=== PATIENT | female | born 1940 | race Caucasian/White ===

== ENCOUNTER 2017-07-12 17:17 | Inpatient (IN) | payer MEDICARE, OTHER ==
[2017-07-12 18:16] VITALS: BP 102/54
[2017-07-12] MEDS ORDERED: Magnesium Hydroxide (MOM) 30 mL UDC PO PRN (20:00)
[2017-07-12] MEDS ORDERED: Maalox 30 mL Cup PO PRN (20:00)
[2017-07-13] MEDS: Levothyroxine 0.1 Mg Tab PO SCH (06:43)
[2017-07-13] MEDS: Pantoprazole 40 mg EC Tab PO SCH (06:43)
[2017-07-13] MEDS ORDERED: Levothyroxine 0.025 Mg Tab PO SCH (07:30)
[2017-07-13 08:47] LABS: % EOSINOPHILS 1.9 % (0.0-5.0); % LYMPHOCYTES 26.1 % (20.0-50.0); % MONOCYTES 7.2 % (2.0-10.0); % NEUTROPHILS 64.8 % (40.0-80.0); EOSINOPHILE ABSOLUTE 0.1 Th/cmm (0.1-0.4); HEMATOCRIT 33.3 % (41.0-60); HEMOGLOBIN 11.1 gm/dL (12-16); MEAN CELL VOLUME 103.6 fl (81-100); MEAN CORPUSCULAR HEMOGLOBIN 34.6 pg (27.0-31.0); MEAN CORPUSCULAR HGB CONC 33.4 pg (28.0-36.0); MEAN PLATELET VOLUME 10.4 fl; MONOCYTE ABSOLUTE 0.3 Th/cmm (0.3-1.0); NEUTROPHILE ABSOLUTE 2.4 Th/cmm (1.8-8.0); PLATELET COUNT 76 Th/cmm (150-400); RED BLOOD COUNT 3.21 Mil/cmm (3.80-5.20); RED CELL DISTRIBUTION WIDTH 14.6 % (11.5-20.0)
[2017-07-13 08:58] LABS: WHITE BLOOD COUNT 3.8 Th/cmm (4.8-10.8)
[2017-07-13 09:05] LABS: ALB/GLOB RATIO 1.2 (1.0-1.8); ALBUMIN 3.1 gm/dL (3.7-5.3); ALKALINE PHOSPHATASE 71 U/L (34-104); ANION GAP 11.4 (7.0-16.0); BILIRUBIN,TOTAL 0.5 mg/dL (0.3-1.0); BUN - UREA NITROGEN 14 mg/dL (7-25); CALCIUM SERUM 8.7 mg/dL (8.6-10.3); CARBON DIOXIDE 23.6 mEq/L (21.0-31.0); CHLORIDE 109 mEq/L (98-107); CREATININE - SERUM 0.7 mg/dL (0.6-1.2); GLUCOSE 125 mg/dL (70-105); SGOT 20 U/L (13-39); SGPT/ALT 14 U/L (7-52); SODIUM SERUM 140 mEq/L (136-145); TOTAL PROTEIN,SERUM 5.7 gm/dL (6.0-8.3)
[2017-07-13 09:06] LABS: VALPROIC ACID < 10.0 ug/mL (50.0-100.0)
[2017-07-13] MEDS: Multivitamin Tab PO SCH (09:46)
[2017-07-13 17:53] LABS: A1C % 5.5 % (4.0-6.0)
--- NOTE | 2017-07-14 05:55 | Psychosocial Evaluation ---
DATE OF SERVICE: 07/13/2017 JUSTIFICATION FOR HOSPITALIZATION: Severe depression, melancholy. CHIEF COMPLAINT: "I am very depressed." HISTORY OF PRESENT ILLNESS: This 76-year-old female notes that she has been very depressed as of late, wants to be back on her medications, which include Seroquel, also Cymbalta. The patient attest hopeless thoughts, melancholy, psychological distress, turmoil, poor sleep, poor appetite. Denying any SI at this time. PAST PSYCHIATRIC HISTORY: History of depression. She denies ever attempting suicide. FAMILY HISTORY: Noncontributory. SOCIAL HISTORY: The patient states that she lives in [place] ____ with her daughter, born in [place], . She states she has 5 children. No drugs, no alcohol, no tobacco. The patient apparently admitted from home accompanied by daughter, originally coming from [facility]. The patient was noted to be initially suspicious when she got here. Daughter involved. MEDICATIONS: Noted. MENTAL STATUS EXAMINATION: Stated age. Fair eye contact. Speech within normal limits. Mood very depressed. Affect withdrawn. Thought processes were linear. No overt SI or HI. There is a documented history of psychosis, but no current visual hallucinations. No paranoia, no auditory hallucinations. Insight and judgment fair. ____. PROVISIONAL DIAGNOSES: Mood, unspecified; anxiety, unspecified; psychosis, unspecified. MEDICAL HISTORY: Please see full H and P. ESTIMATED LENGTH OF STAY: 5-7 days. ASSESSMENT: The patient requiring hospitalization, depressed, overwhelmed, not stable, concerns for psychotic symptom, brought in by family. PLAN: Restart medications. The patient notes she also takes Cymbalta. We will increase collateral. TREATMENT PLAN: Includes group as well as milieu therapy. CONDITIONS FOR DISCHARGE: Improved mood, improved affect, better control of her mood symptoms. [facility]# [id number]
[2017-07-14] MEDS: Levothyroxine 0.1 Mg Tab PO SCH (06:34)
[2017-07-14] MEDS: Pantoprazole 40 mg EC Tab PO SCH (06:35)
[2017-07-14] MEDS: Multivitamin Tab PO SCH (09:27)
[2017-07-14 13:13] LABS: HEP A AB IGM Negative (Negative); HEP B CORE IGM Negative (Negative); HEP B SURFACE AG QL Negative (Negative); HEP C ANTIBODY >11.0 s/co ratio (0.0-0.9)
--- NOTE | 2017-07-14 16:26 | History & Physical ---
ADMIT DATE: 07/12/2017 CHIEF COMPLAINT: Depression. HISTORY OF PRESENT ILLNESS: This is a 76-year-old female who was admitted originally from [facility], brought in there by daughter and was medically cleared, was transferred to [facility] due to depression. REVIEW OF SYSTEMS: GENERAL: This is a 76-year-old female that appears as stated. Denies chills. Denies fever. Denies weight loss. HEENT: Denies headache. Denies dizziness. EYES: Denies eye pain. Denies blurring vision. NECK: Denies neck pain, denies nuchal rigidity. CHEST: Denies chest pain, denies palpitation. PULMONARY: Denies shortness of breath, denies coughing. GASTROINTESTINAL: Denies abdominal pain. Denies constipation. Denies diarrhea. MUSCULOSKELETAL: Denies joint pain. Denies muscle pain. PSYCHIATRIC HISTORY: Includes depression. PAST MEDICAL HISTORY: Includes hypertension, glaucoma, hepatitis, and fibromyalgia. FAMILY HISTORY: Unremarkable. PAST SURGICAL HISTORY: Unremarkable. SOCIAL HISTORY: The patient lives at home with family prior to hospitalization. PHYSICAL EXAMINATION: VITAL SIGNS: Temperature 98.2, heart rate of 98, blood pressure 147/80, respirations of 20, and 95% on room air. HEENT: Head is atraumatic, normocephalic. Eyes: Bilateral conjunctivae are clear. Bilateral pupils are equally round and reactive. NECK: Supple. No JVD. CARDIOVASCULAR: S1 and S2, without murmur. LUNGS: Clear to auscultation. GASTROINTESTINAL: Soft and nontender without guarding. Positive bowel sounds. MUSCULOSKELETAL: No clubbing. No cyanosis noted. ASSESSMENT: 1. Mood disorder. 2. Anxiety. 3. Psychosis. 4. Hypertension. 5. Glaucoma. 6. Hepatitis. 7. Fibromyalgia. PLAN: We will admit the patient to senior mental health unit. We will continue medication per the medication reconciliation accordingly. We will follow up with a psychiatrist to monitor the patient's condition and behavior. Treatment plans were discussed with the patient's nurse. Treatment plans were discussed with Dr. Best. JOB# [id number]
--- NOTE | 2017-07-14 23:25 | Progress Notes ---
DATE: 07/14/2017 SUBJECTIVE: The patient in hospital, very depressed, hopeless, despairing, hopeless thoughts, melancholic, psychological distress, turmoil, poor sleep. On [id number], the patient is not talking to me. She is asleep, arousable, but goes back to sleep. The patient with a daughter that is involved, mostly withdrawn. No behavioral issues as of late, per staff, but at times she does get agitated, withdrawn, and ____ at times, poor orientation at other times. I did ask social work to contact daughter to increase collateral. MEDICATIONS: Noted. ASSESSMENT: The patient remains withdrawn, depressed, ongoing behavioral concerns. Pending collateral information from social work. We will monitor and follow up. JOB# [id number]
[2017-07-15] MEDS: Levothyroxine 0.1 Mg Tab PO SCH (06:49)
[2017-07-15] MEDS: Pantoprazole 40 mg EC Tab PO SCH (06:49)
--- NOTE | 2017-07-15 08:46 | General Progress Note ---
Subjective - Review of Systems Events since last encounter: patient awake anxious, irritable Objective - Results Result Diagrams: 07/13/17 08:30 07/13/17 08:30 Recent Labs: Laboratory Last Values WBC 3.8 Th/cmm (4.8-10.8) L 07/13/17 08:30 RBC 3.21 Mil/cmm (3.80-5.20) L 07/13/17 08:30 Hgb 11.1 gm/dL (12-16) L 07/13/17 08:30 Hct 33.3 % (41.0-60) L 07/13/17 08:30 MCV 103.6 fl (81-100) H 07/13/17 08:30 MCH 34.6 pg (27.0-31.0) H 07/13/17 08:30 MCHC Differential 33.4 pg (28.0-36.0) 07/13/17 08:30 RDW 14.6 % (11.5-20.0) 07/13/17 08:30 Plt Count 76 Th/cmm (150-400) L 07/13/17 08:30 MPV 10.4 fl 07/13/17 08:30 Neutrophils % 64.8 % (40.0-80.0) 07/13/17 08:30 Lymphocytes % 26.1 % (20.0-50.0) 07/13/17 08:30 Monocytes % 7.2 % (2.0-10.0) 07/13/17 08:30 Eosinophils % 1.9 % (0.0-5.0) 07/13/17 08:30 Basophils % 0.0 % (0.0-2.0) 07/13/17 08:30 Sodium 140 mEq/L (136-145) 07/13/17 08:30 Potassium 4.0 mEq/L (3.5-5.1) 07/13/17 08:30 Chloride 109 mEq/L (98-107) H 07/13/17 08:30 Carbon Dioxide 23.6 mEq/L (21.0-31.0) 07/13/17 08:30 Anion Gap 11.4 (7.0-16.0) 07/13/17 08:30 BUN 14 mg/dL (7-25) 07/13/17 08:30 Creatinine 0.7 mg/dL (0.6-1.2) 07/13/17 08:30 Est GFR ( Amer) TNP 07/13/17 08:30 Est GFR (Non-Af Amer) TNP 07/13/17 08:30 BUN/Creatinine Ratio 20.0 07/13/17 08:30 Glucose 125 mg/dL (70-105) H 07/13/17 08:30 Hemoglobin A1c % 5.5 % (4.0-6.0) 07/13/17 08:30 Calcium 8.7 mg/dL (8.6-10.3) 07/13/17 08:30 Total Bilirubin 0.5 mg/dL (0.3-1.0) 07/13/17 08:30 AST 20 U/L (13-39) 07/13/17 08:30 ALT 14 U/L (7-52) 07/13/17 08:30 Alkaline Phosphatase 71 U/L (34-104) 07/13/17 08:30 Total Protein 5.7 gm/dL (6.0-8.3) L 07/13/17 08:30 Albumin 3.1 gm/dL (3.7-5.3) L 07/13/17 08:30 Globulin 2.6 gm/dL 07/13/17 08:30 Albumin/Globulin Ratio 1.2 (1.0-1.8) 07/13/17 08:30 TSH 0.40 uIU/ml (0.34-5.60) 07/13/17 08:30 Valproic Acid < 10.0 ug/mL (50.0-100.0) L 07/13/17 08:30 Hepatitis A IgM Ab Negative (Negative) 07/13/17 15:19 Hep Bs Antigen Negative (Negative) 07/13/17 15:19 Hep B Core IgM Ab Negative (Negative) 07/13/17 15:19 Hepatitis C Antibody >11.0 s/co ratio (0.0-0.9) H 07/13/17 15:19 - Physical Exam Vitals and I&O: Vital Signs Temp 97.9 F 07/15/17 04:46 Pulse 76 07/15/17 04:46 Resp 18 07/15/17 04:46 BP 141/87 04/22/18 04:46 Pulse Ox 98 07/15/17 04:46 Intake & Output 07/14/17 07/15/17 07/15/17 18:59 06:59 18:59 Intake Total 480 Balance 480 Intake: Oral 480 Other: # Voids 2 Stool Characteristics Soft Formed Active Medications: Current Medications Acetaminophen (Tylenol) 650 mg PO Q4HR PRN PRN Reason: Mild Pain / Temp above 100 Stop: 09/10/17 19:59 Al Hydrox/Mg Hydrox/Simethicone (Maalox) 30 ml PO Q4HR PRN PRN Reason: GI DISTRESS Stop: 09/10/17 19:59 Aspirin (Aspirin) 325 mg PO DAILY [facility] Stop: 09/11/17 08:59 Last Admin: 07/14/17 09:26 Dose: 325 mg Baclofen (Lioresal) 20 mg PO TID [facility] Stop: 09/11/17 08:59 Last Admin: 07/14/17 21:09 Dose: 20 mg Furosemide (Lasix) 40 mg PO DAILY [facility] Stop: 09/11/17 08:59 Last Admin: 07/14/17 09:26 Dose: 40 mg Gabapentin (Neurontin) 300 mg PO BID [facility] Stop: 09/11/17 08:59 Last Admin: 07/14/17 17:21 Dose: 300 mg Levothyroxine Sodium (Synthroid) 0.2 mg PO QDAC [facility] Stop: 09/11/17 07:29 Last Admin: 07/15/17 06:49 Dose: 0.2 mg Lorazepam (Ativan) 0.5 mg PO Q4HR PRN; Protocol PRN Reason: Anxiety/agitation Stop: 08/11/17 19:59 Last Admin: 07/13/17 10:06 Dose: 0.5 mg Magnesium Hydroxide (Milk Of Magnesia) 30 ml PO HS PRN PRN Reason: Constipation Metoprolol Tartrate (Lopressor) 50 mg PO DAILY [facility] Stop: 09/11/17 08:59 Last Admin: 07/14/17 09:26 Dose: 50 mg Multivitamins/Vitamin C (Theragran) 1 tab PO DAILY [facility] Stop: 09/11/17 08:59 Last Admin: 07/14/17 09:27 Dose: 1 tab Pantoprazole Sodium (Protonix) 40 mg PO QDAC [facility] Stop: 09/11/17 07:29 Last Admin: 07/15/17 06:49 Dose: 40 mg Quetiapine Fumarate (Seroquel) 300 mg PO HS [facility] PRN Reason: Protocol Stop: 09/11/17 20:59 Last Admin: 07/14/17 21:09 Dose: 300 mg Trazodone HCl (Desyrel) 50 mg PO HS [facility] PRN Reason: Protocol Stop: 09/11/17 20:59 Last Admin: 07/14/17 21:08 Dose: 50 mg Zolpidem Tartrate (Ambien) 5 mg PO HS PRN PRN Reason: Insomnia Stop: 09/10/17 19:59
[2017-07-15] MEDS: Multivitamin Tab PO SCH (09:58)
--- NOTE | 2017-07-15 22:21 | Progress Notes ---
DATE: 07/15/2017 The patient is currently in the hospital. She had been quite depressed down, seems to be improving. Staff noting she has been significantly calmer, cooperative, hoping to go home soon. Family involved. Family trying to get her closer to [facility]. No behavioral history. Is calm and quiet. Sleeping well throughout the night. Fair orientation. Sometimes easily triggered, easily agitated, needing prompting to take medications. Medications were noted. ASSESSMENT: The patient seems to be improving, mood improved, depression symptoms seemed to be relieving to some extent. No overt psychotic symptoms. Still with some periods of hopelessness and despair, but negative thoughts are less intense. PLAN: We will continue to monitor. The patient does seem to be calmer, redirectable, will continue to monitor and follow up. JOB# [id number]
[2017-07-16] MEDS: Pantoprazole 40 mg EC Tab PO SCH (06:49)
[2017-07-16] MEDS: Levothyroxine 0.1 Mg Tab PO SCH (06:49)
[2017-07-16] MEDS: Multivitamin Tab PO SCH (09:07)
--- NOTE | 2017-07-16 14:21 | General Progress Note ---
Subjective - Review of Systems Events since last encounter: still irritable and anxious Objective - Results Result Diagrams: 07/13/17 08:30 07/13/17 08:30 Recent Labs: Laboratory Last Values WBC 3.8 Th/cmm (4.8-10.8) L 07/13/17 08:30 RBC 3.21 Mil/cmm (3.80-5.20) L 07/13/17 08:30 Hgb 11.1 gm/dL (12-16) L 07/13/17 08:30 Hct 33.3 % (41.0-60) L 07/13/17 08:30 MCV 103.6 fl (81-100) H 07/13/17 08:30 MCH 34.6 pg (27.0-31.0) H 07/13/17 08:30 MCHC Differential 33.4 pg (28.0-36.0) 07/13/17 08:30 RDW 14.6 % (11.5-20.0) 07/13/17 08:30 Plt Count 76 Th/cmm (150-400) L 07/13/17 08:30 MPV 10.4 fl 07/13/17 08:30 Neutrophils % 64.8 % (40.0-80.0) 07/13/17 08:30 Lymphocytes % 26.1 % (20.0-50.0) 07/13/17 08:30 Monocytes % 7.2 % (2.0-10.0) 07/13/17 08:30 Eosinophils % 1.9 % (0.0-5.0) 07/13/17 08:30 Basophils % 0.0 % (0.0-2.0) 07/13/17 08:30 Sodium 140 mEq/L (136-145) 07/13/17 08:30 Potassium 4.0 mEq/L (3.5-5.1) 07/13/17 08:30 Chloride 109 mEq/L (98-107) H 07/13/17 08:30 Carbon Dioxide 23.6 mEq/L (21.0-31.0) 07/13/17 08:30 Anion Gap 11.4 (7.0-16.0) 07/13/17 08:30 BUN 14 mg/dL (7-25) 07/13/17 08:30 Creatinine 0.7 mg/dL (0.6-1.2) 07/13/17 08:30 Est GFR ( Amer) TNP 07/13/17 08:30 Est GFR (Non-Af Amer) TNP 07/13/17 08:30 BUN/Creatinine Ratio 20.0 07/13/17 08:30 Glucose 125 mg/dL (70-105) H 07/13/17 08:30 Hemoglobin A1c % 5.5 % (4.0-6.0) 07/13/17 08:30 Calcium 8.7 mg/dL (8.6-10.3) 07/13/17 08:30 Total Bilirubin 0.5 mg/dL (0.3-1.0) 07/13/17 08:30 AST 20 U/L (13-39) 07/13/17 08:30 ALT 14 U/L (7-52) 07/13/17 08:30 Alkaline Phosphatase 71 U/L (34-104) 07/13/17 08:30 Total Protein 5.7 gm/dL (6.0-8.3) L 07/13/17 08:30 Albumin 3.1 gm/dL (3.7-5.3) L 07/13/17 08:30 Globulin 2.6 gm/dL 07/13/17 08:30 Albumin/Globulin Ratio 1.2 (1.0-1.8) 07/13/17 08:30 TSH 0.40 uIU/ml (0.34-5.60) 07/13/17 08:30 Valproic Acid < 10.0 ug/mL (50.0-100.0) L 07/13/17 08:30 Hepatitis A IgM Ab Negative (Negative) 07/13/17 15:19 Hep Bs Antigen Negative (Negative) 07/13/17 15:19 Hep B Core IgM Ab Negative (Negative) 07/13/17 15:19 Hepatitis C Antibody >11.0 s/co ratio (0.0-0.9) H 07/13/17 15:19 - Physical Exam Vitals and I&O: Vital Signs Temp 97.6 F 07/16/17 06:37 Pulse 63 07/16/17 09:07 Resp 16 07/16/17 06:37 BP 127/64 07/16/17 09:07 Pulse Ox 98 07/16/17 06:37 Active Medications: Current Medications Acetaminophen (Tylenol) 650 mg PO Q4HR PRN PRN Reason: Mild Pain / Temp above 100 Stop: 09/10/17 19:59 Al Hydrox/Mg Hydrox/Simethicone (Maalox) 30 ml PO Q4HR PRN PRN Reason: GI DISTRESS Stop: 09/10/17 19:59 Aspirin (Aspirin) 325 mg PO DAILY [facility] Stop: 09/11/17 08:59 Last Admin: 07/16/17 09:07 Dose: 325 mg Baclofen (Lioresal) 20 mg PO TID [facility] Stop: 09/11/17 08:59 Last Admin: 07/16/17 13:26 Dose: 20 mg Furosemide (Lasix) 40 mg PO DAILY [facility] Stop: 09/11/17 08:59 Last Admin: 07/16/17 09:07 Dose: 40 mg Gabapentin (Neurontin) 300 mg PO BID [facility] Stop: 09/11/17 08:59 Last Admin: 07/16/17 09:07 Dose: 300 mg Levothyroxine Sodium (Synthroid) 0.2 mg PO QDAC [facility] Stop: 09/11/17 07:29 Last Admin: 07/16/17 06:49 Dose: 0.2 mg Lorazepam (Ativan) 0.5 mg PO Q4HR PRN; Protocol PRN Reason: Anxiety/agitation Stop: 08/11/17 19:59 Last Admin: 07/13/17 10:06 Dose: 0.5 mg Magnesium Hydroxide (Milk Of Magnesia) 30 ml PO HS PRN PRN Reason: Constipation Metoprolol Tartrate (Lopressor) 50 mg PO DAILY [facility] Stop: 09/11/17 08:59 Last Admin: 07/16/17 09:07 Dose: 50 mg Multivitamins/Vitamin C (Theragran) 1 tab PO DAILY [facility] Stop: 09/11/17 08:59 Last Admin: 07/16/17 09:07 Dose: 1 tab Pantoprazole Sodium (Protonix) 40 mg PO QDAC [facility] Stop: 09/11/17 07:29 Last Admin: 07/16/17 06:49 Dose: 40 mg Quetiapine Fumarate (Seroquel) 300 mg PO HS [facility] PRN Reason: Protocol Stop: 09/11/17 20:59 Last Admin: 07/15/17 21:12 Dose: 300 mg Trazodone HCl (Desyrel) 50 mg PO HS [facility] PRN Reason: Protocol Stop: 09/11/17 20:59 Last Admin: 07/15/17 21:11 Dose: 50 mg Zolpidem Tartrate (Ambien) 5 mg PO HS PRN PRN Reason: Insomnia Stop: 09/10/17 19:59
--- NOTE | 2017-07-16 19:53 | Progress Notes ---
DATE: 07/16/2017 SUBJECTIVE: The patient in the hospital, she has been depressed, down and seems to be improving somewhat calmer, fair orientation. Sleeping fairly well. Staff noting she has been redirectable, significantly calmer. No overt psychotic symptoms. No distress, noted to be with continued confusion episodes, poor memory. She is taking her medications as prescribed. ASSESSMENT: The patient with some bouts of confusion, still depressed, down, but significantly calmer. MEDICATIONS: Noted. PLAN: We will continue to monitor and adjust and titrate medications. JOB# [id number]
[2017-07-17] MEDS: Levothyroxine 0.1 Mg Tab PO SCH (06:43)
[2017-07-17] MEDS: Pantoprazole 40 mg EC Tab PO SCH (06:44)
[2017-07-17] MEDS: Multivitamin Tab PO SCH (09:40)
--- NOTE | 2017-07-17 20:25 | Discharge Summary ---
DATE OF DISCHARGE: 07/17/2017 DATE OF ADMISSION: 07/12/2017 DATE OF DISCHARGE: 07/17/2017 JUSTIFICATION FOR HOSPITALIZATION: Severe depression. HISTORY OF PRESENT ILLNESS: This is a 76-year-old female, very depressed, off her medications, wants to be back on Seroquel, hopeless thoughts, melancholy, poor sleep, poor appetite, no SI. PAST PSYCHIATRIC HISTORY: Depression. SOCIAL HISTORY: Noted. Daughter involved. MEDICATIONS: Noted. MENTAL STATUS EXAMINATION: Please see full psych eval for details. PROVISIONAL DIAGNOSES: Mood, unspecified; anxiety, unspecified. It is unclear if she has any psychotic symptoms. PAST PSYCHIATRIC HISTORY: Documented history. PROVISIONAL DIAGNOSIS: Psychosis, but when I saw her, she was denying any psychotic symptoms and also did not appear psychotic. PAST MEDICAL HISTORY: Please see full H and P. HOSPITAL COURSE: After initial assessment, the patient restarted back on her medications including trazodone, Seroquel. Apparently, she had been on Cymbalta in the past, but it appeared that her current medication regimen including trazodone and Seroquel was helping her mood and her thoughts. regional production manager was in touch with daughter. The patient was eventually accepted to [facility]. Over the course of the hospitalization, the patient improved, mood improved, affect improved, getting along well with staff and peers. Staff noting she was calm, comfortable, no behavioral disturbances. The patient is noted to be more hopeful and motivated. Again, hopeful, also motivated, also optimistic. Staff noting better orientation, no behavioral disturbances, pleasant at times, withdrawn at times with some confusional episodes. To the latter end of the hospitalization, she was no longer symptomatic. Placement was confirmed and then she was discharged. CONDITION UPON DISCHARGE: Improved, good ADLs, good eye contact. Speech within normal limits. Mood: "better." Affect broad. Thought processes were engaged, no SI, no HI, no psychotic symptoms. Insight and judgment improved. Better impulse control. PROVISIONAL DIAGNOSES: Mood, unspecified; anxiety, unspecified; rule out dementia. Some confusional periods noted. MEDICAL HISTORY: Please see full H and P. PROGNOSIS: If the patient follows up with outpatient mental services and remains treatment compliant, prognosis will improve, otherwise guarded. We will contact daughter to discuss treatment plan and answer questions. [facility]# [id number]
== END 2017-07-17 14:25 | DRG 885 ==
LOC: GERO2 17:17
PROVIDERS: ADMIT Psychiatry & Neurology Psychiatry; ATTEND Psychiatry & Neurology Psychiatry
DX: F29 Unspecified psychosis not due to a substance or known physiological condition (principal); F39 Unspecified mood [affective] disorder; F32.9 Major depressive disorder, single episode, unspecified; I10 Essential (primary) hypertension; F41.9 Anxiety disorder, unspecified; H40.9 Unspecified glaucoma; M79.7 Fibromyalgia; K75.9 Inflammatory liver disease, unspecified; F03.90 Unspecified dementia, unspecified severity, without behavioral disturbance, psychotic disturbance, mood disturbance, and anxiety
CPT/HCPCS: 36415-UA; 80053-TC; 80074-90; 80164-TC; 83036-90; 84443-TC; 85025-TC; Z7610

== ENCOUNTER 2018-04-04 11:33 | Inpatient (IN) | payer MEDICARE, MEDICAID ==
--- NOTE | 2018-04-04 12:26 | ED Physician Chart ---
ED Chief Complaint/HPI - Patient Information Date Seen:: 04/04/18 Time Seen:: 12:00 Chief Complaint:: cough and congestion History of Present Illness:: Patient's had cough and congestion for last 3 weeks. Cough is productive of thick white sputum. Patient's temperature last night was 103.5. Allergies:: Allergies Allergy/AdvReac Type Severity Reaction Status Date / Time ceftazidime Allergy Verified 07/12/17 18:05 [ceftazidime (anhydrous)] clindamycin Allergy Verified 07/12/17 18:05 Sulfa (Sulfonamide Allergy Verified 07/12/17 18:05 Antibiotics) Vitals:: Vital Signs - 8 hr 04/04/18 04/04/18 11:49 12:17 Temp 99.5 F 99.5 F HR 100 100 RR 16 16 BP 97/70 97/70 O2 Sat % 95 95 Historian:: Patient Review:: Transfer documents Reviewed ED Review of Systems - Review of Systems General/Constitutional: Fever Skin: Skin lesions Head: No headache Eyes: No loss of vision ENT: No earache Neck: No neck pain Cardio Vascular: No chest pain Pulmonary: Cough, Sputum GI: No nausea, No vomiting, No diarrhea Musculoskeletal: No bone or joint pain Endocrine: No polyuria, No polydipsia Psychiatric: Prior psych history Hematopoietic: No bruising Allergic/Immuno: No urticaria Neurological: No focal symptoms ED Past Medical History - Past Medical History Past Medical History: Seizures, Thyroid disorder, Other (major depression; atrial fibrillation; hypothyroidism; fibromyalgia; glaucoma; psychosis) Family History: None Social History: Non Smoker, Alcohol, Other (quit smoking many years ago; drinks 4 cans of beer per day) Surgical History: other (amputation first and third toes left foot) Family Medical History - Family Member mother History Unknown: Yes Ethnicity: Unknown Living Status: Unknown ED Physical Exam - Physical Examination General/Constitutional: Awake, Well-developed, well-nourished, Alert, No distress Other Gen/Cons comments:: Mildly confused; states it is March 2017; no coughing Head: Atraumatic Eyes: Lids, conjuctiva normal, PERRL Skin: Nl inspection, No rash ENMT: External ears, nose nl Other ENMT comments:: Edentulous Neck: No nuchal rigidity Respiratory: Nl effort/Exclusion Other Respiratory comments:: Scattered rales and scattered wheezing Other Cardio Vascular comments:: Heart sounds faint; rhythm irregular GI: No tenderness/rebounding/guarding, No organomegaly, No hernia, Normal BS's, Nondistended, No mass/bruits Other Extremities comments:: Absent left first and third toes Neuro/Psych: No focal deficits ED Labs/Radiology/EKG Results - Lab Results Results: Abnormal Lab Results 04/04/18 04/04/18 04/04/18 12:40 12:40 13:00 WBC 5.5 RBC 3.85 Hgb 11.7 L Hct 35.5 L MCV 92.1 MCH 30.5 MCHC Differential 33.1 RDW 14.3 Plt Count 38 L MPV 9.8 Neutrophils % 73.1 Lymphocytes % 17.2 L Monocytes % 8.9 Eosinophils % 0.5 Basophils % 0.3 Sodium 140 Potassium 3.9 Chloride 103 Carbon Dioxide 27.3 Anion Gap 13.6 BUN 13 Creatinine 0.8 Est GFR ( Amer) TNP Est GFR (Non-Af Amer) TNP BUN/Creatinine Ratio 16.3 Glucose 84 Calcium 8.8 Influenza A (Rapid) NEG FOR INF A Influenza B (Rapid) NEG FOR INF B - EKG Interpretations Rate & Rhythm: atrial fibrillation with a rate of 95 Immaculata: normal Comments:: Right bundle-branch block ED Septic Shock - . Is Septic Shock (SBP<90, OR Lactate>4 mmol\L) present?: No - <6hrs of presentation: Vital Signs: Vital Signs - 8 hr 04/04/18 04/04/18 11:49 12:17 Temp 99.5 F 99.5 F HR 100 100 RR 16 16 BP 97/70 97/70 O2 Sat % 95 95 ED Reassessment (Disposition) - Reassessment Reassessment Condition:: Unchanged - Diagnosis Diagnosis:: Exacerbation COPD; bronchitis; atrial fibrillation; pancytopenia - Patient Disposition Admitted to:: Med/Surg Admitting Medical Physician:: Guera Best Condition at Disposition:: Stable, Unchanged
[2018-04-04 13:03] LABS: HEMATOCRIT 35.5 % (41.0-60); HEMOGLOBIN 11.7 gm/dL (12-16); MEAN CELL VOLUME 92.1 fl (81-100); MEAN CORPUSCULAR HEMOGLOBIN 30.5 pg (27.0-31.0); MEAN CORPUSCULAR HGB CONC 33.1 pg (28.0-36.0); MEAN PLATELET VOLUME 9.8 fl; RED BLOOD COUNT 3.85 Mil/cmm (3.80-5.20); RED CELL DISTRIBUTION WIDTH 14.3 % (11.5-20.0); WHITE BLOOD COUNT 5.5 Th/cmm (4.8-10.8)
[2018-04-04 13:04] LABS: ANION GAP 13.6 (7.0-16.0); BUN - UREA NITROGEN 13 mg/dL (7-25); CALCIUM SERUM 8.8 mg/dL (8.6-10.3); CARBON DIOXIDE 27.3 mEq/L (21.0-31.0); CHLORIDE 103 mEq/L (98-107); CREATININE - SERUM 0.8 mg/dL (0.6-1.2); GLUCOSE 84 mg/dL (70-105); POTASSIUM SERUM 3.9 mEq/L (3.5-5.1); SODIUM SERUM 140 mEq/L (136-145)
[2018-04-04 13:10] LABS: PLATELET COUNT 38 Th/cmm (150-400)
--- NOTE | 2018-04-04 13:33 | Diagnostic Imaging Report ---
CHEST X-RAY: AP view INDICATION: Cough COMPARISON: None FINDINGS: There is mild elevation of the right hemidiaphragm. There is no focal consolidation or pleural effusions cardiomegaly is noted with atherosclerosis. Degenerative changes of the spine are noted. There is may have been previous trauma to the right proximal humerus. IMPRESSION: No focal consolidation or evidence of CHF. Cardiomegaly and atherosclerotic vascular disease. Possible previous trauma to the proximal right humerus. Dedicated right shoulder x-rays may also be obtained.
[2018-04-04 13:36] LABS: INF A SCREEN NEG FOR INF A; INF B SCREEN NEG FOR INF B
[2018-04-04] MEDS ORDERED: Albuterol/Ipratropium Neb 3 ML AERS HHN ONE ×2 (13:49→13:55)
[2018-04-04 13:56] LABS: EOSINOPHIL 1 % (0-5); LYMPHOCYTE 16 % (20-50); MONOCYTE 8 % (2-10); NEUTROPHILS 75 % (40-80)
[2018-04-04 13:57] LABS: PLATELET ESTIMATE DECREASED PLATELETS (NORMAL); PLATELET MORPHOLOGY GIANT PLATELETS SEEN (NORMAL)
[2018-04-04] MEDS: Sodium Chloride 0.9% 1,000 ML IV SCH (19:16)
[2018-04-05 06:00] LABS: % BASOPHILS 0.4 % (0.0-2.0); % EOSINOPHILS 0.6 % (0.0-5.0); % LYMPHOCYTES 16.1 % (20.0-50.0); % MONOCYTES 8.4 % (2.0-10.0); % NEUTROPHILS 74.5 % (40.0-80.0); HEMATOCRIT 37.5 % (41.0-60); HEMOGLOBIN 12.5 gm/dL (12-16); LYMPHOCYTE ABSOLUTE 0.9 Th/cmm (1.5-3.0); MEAN CELL VOLUME 91.5 fl (81-100); MEAN CORPUSCULAR HEMOGLOBIN 30.6 pg (27.0-31.0); MEAN CORPUSCULAR HGB CONC 33.4 pg (28.0-36.0); MEAN PLATELET VOLUME 11.2 fl; MONOCYTE ABSOLUTE 0.5 Th/cmm (0.3-1.0); NEUTROPHILE ABSOLUTE 4.5 Th/cmm (1.8-8.0); PLATELET COUNT 40 Th/cmm (150-400); RED CELL DISTRIBUTION WIDTH 13.9 % (11.5-20.0); WHITE BLOOD COUNT 5.9 Th/cmm (4.8-10.8)
[2018-04-05 06:12] LABS: ALB/GLOB RATIO 1.1 (1.0-1.8); ALBUMIN 3.8 gm/dL (3.7-5.3); ALKALINE PHOSPHATASE 83 U/L (34-104); ANION GAP 13.9 (7.0-16.0); BILIRUBIN,TOTAL 1.3 mg/dL (0.3-1.0); BUN - UREA NITROGEN 13 mg/dL (7-25); CARBON DIOXIDE 27.4 mEq/L (21.0-31.0); CHLORIDE 101 mEq/L (98-107); CREATININE - SERUM 0.8 mg/dL (0.6-1.2); GLUCOSE 129 mg/dL (70-105); POTASSIUM SERUM 3.3 mEq/L (3.5-5.1); SGOT 24 U/L (13-39); SGPT/ALT 12 U/L (7-52); SODIUM SERUM 139 mEq/L (136-145); TOTAL PROTEIN,SERUM 7.2 gm/dL (6.0-8.3)
[2018-04-05] MEDS ORDERED: Probiotic Screen MC PRN (10:30)
[2018-04-05] MEDS ORDERED: VTE Chemical Prophylaxis Screen/Admission MC PRN (11:00)
[2018-04-05] MEDS ORDERED: Potassium Chloride 20 mEq ER Tab PO ONE ×2 (14:38→16:02)
[2018-04-05] MEDS: Sodium Chloride 0.9% 1,000 ML IV SCH (15:31)
[2018-04-05 15:54] LABS: URINE SOURCE RANDOM
[2018-04-05 15:58] LABS: URINE BILIRUBIN NEGATIVE (NEGATIVE); URINE BLOOD NEGATIVE (NEGATIVE); URINE GLUCOSE (UA) NEGATIVE (NEGATIVE); URINE KETONE NEGATIVE (NEGATIVE); URINE LEUKOCYTE ESTERASE NEGATIVE (NEGATIVE); URINE NITRATE NEGATIVE (NEGATIVE); URINE PH 7.5 (4.6 - 8.0); URINE PROTEIN NEGATIVE (NEGATIVE)
[2018-04-05 16:06] LABS: URINE CLARITY CLEAR (CLEAR); URINE COLOR YELLOW; URINE MICROSCOPIC INDICATED? YES
--- NOTE | 2018-04-05 17:06 | Consultation ---
DATE OF CONSULTATION: 04/05/2018 HEMATOLOGY ONCOLOGY CONSULTATION REASON FOR CONSULTATION: Thrombocytopenia. REFERRING PHYSICIAN: Dr. Best. HISTORY OF PRESENT ILLNESS: The patient is a 77-year-old female who was admitted with cough and congestion and fever 103.5. The patient was started on antibiotics, Zosyn and vancomycin and she was found to have platelet count from admission 38 and from today it is 40,000, with normal white count and hemoglobin. Therefore, I was asked to evaluate. Old records were reviewed and the patient had a platelet count of 75,000 from 06/2017. PAST MEDICAL HISTORY: Seizures, thyroid disorder, atrial fibrillation, hypothyroidism, fibromyalgia, and psychosis. SOCIAL HISTORY: Long history of drinking beer and former smoker. PAST SURGICAL HISTORY: Amputation of the first and third toes of the left foot. MEDICATIONS: Vancomycin and Zosyn. PHYSICAL EXAMINATION: GENERAL: The patient is awake, chronically ill looking. VITAL SIGNS: Temperature 98.8, blood pressure 150/80, pulse 90, and room air 95% saturation. CHEST: Bilateral rhonchi. ABDOMEN: Obese and soft. EXTREMITIES: No edema. NERVOUS SYSTEM: Moves four extremities. DIAGNOSTIC STUDIES: Chest x-ray no focal consolidation or congestive heart failure, cardiomegaly, trauma to the proximal right humerus. LABORATORY DATA: Creatinine 0.8. Liver functions normal. White count 5.9, hemoglobin 12.5. ASSESSMENT: Moderate thrombocytopenia, not associated with bleeding. The mean platelet volume is high normal. The patient has normal white count in the setting of fever indicative of some sort of baseline leukopenia and her white count from June was 3.8. I will obtain spleen ultrasound and a B12 and folate level. No need for transfusion for this platelet count. I will also obtain coagulation panel. Thank you, Dr. Best for the opportunity to participate in the care of this interesting case. JOB# [id number]
[2018-04-05 18:12] LABS: URINE BACTERIA 1+ /hpf (NONE SEEN); URINE EPITHELIAL CELLS MODERATE /lpf (FEW); URINE RBC 0-2 /hpf (0-5)
[2018-04-05] MEDS: Metoprolol tartrate 1 mg/ml 5mL Amp IV PRN (18:12)
[2018-04-05] MEDS ORDERED: Guaifenesin DM 10 ML UDC PO PRN (19:35)
[2018-04-05] MEDS ORDERED: Maalox 30 mL Cup PO PRN (19:35)
[2018-04-05] MEDS ORDERED: Magnesium Hydroxide (MOM) 30 mL UDC PO PRN (19:35)
--- NOTE | 2018-04-05 22:14 | History & Physical ---
ADMIT DATE: 04/04/2018 HISTORY OF PRESENT ILLNESS: A 77-year-old female patient ____ snf home. The patient had fever, congestion, cough for several days. Her temperature in the range of 103-104 for several days. The patient came to the Emergency Room, was admitted and also found that the patient's platelet count was low, the patient initially was 75 and down to 40. PAST MEDICAL HISTORY: Included history of seizure, thyroid disorder, history of atrial fibrillation, hypothyroidism, fibromyalgia, history of psychosis. SOCIAL HISTORY: The patient has a history of drinking as well as the smoking. 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 MEDICATIONS: The patient on IV antibiotics right now, vancomycin and Zosyn. PHYSICAL EXAMINATION: GENERAL: The patient is awake, alert, chronically ill looking elderly person, 77-year-old female, not in acute distress. VITAL SIGNS: Blood pressure was 158/80, pulse was 90, respirations was 20, and temperature 98.8. HEENT: Head is normocephalic. Pupils equal, reactive to light. NECK: Supple, nontender. LUNGS: Bilateral rhonchi. CARDIOVASCULAR SYSTEM: S1, S2 heard. ABDOMEN: Soft abdomen. EXTREMITIES: Revealed no edema. The patient moves all extremities. CENTRAL NERVOUS SYSTEM: Grossly normal. LABORATORY DATA: Chest x-ray showed no focal congestion, but bronchitis, showed cardiomegaly and the patient also to avoid trauma to the right humerus. DIAGNOSES: Acute bronchitis, rule out pneumonia, thrombocytopenia, high temperatures, baseline leukopenia was made. PLAN: The patient was admitted, I spoke with Dr. Cobos. The patient was started on IV antibiotics and the patient will have ID consult, Dr. Enrike Hunt and also consulted Dr. Galvan and I will follow the patient. JOB# [id number]
[2018-04-06] MEDS: Albuterol/Ipratropium Neb 3 ML AERS HHN SCH ×4 (00:23→19:04)
[2018-04-06] MEDS: Pantoprazole 40 mg EC Tab PO SCH (06:59)
[2018-04-06] MEDS ORDERED: LEVOTHYROXINE SODIUM 150 MCG PO SCH (07:30)
[2018-04-06 07:47] LABS: ANION GAP 14.3 (7.0-16.0); BUN - UREA NITROGEN 13 mg/dL (7-25); CALCIUM SERUM 8.8 mg/dL (8.6-10.3); CHLORIDE 105 mEq/L (98-107); CREATININE - SERUM 0.8 mg/dL (0.6-1.2); GLUCOSE 102 mg/dL (70-105); POTASSIUM SERUM 3.3 mEq/L (3.5-5.1); SODIUM SERUM 143 mEq/L (136-145)
--- NOTE | 2018-04-06 08:32 | Diagnostic Imaging Report ---
Right shoulder (3 views) HISTORY: Pain Is deformity of the humeral neck consistent with an old fracture. No acute abnormalities. No dislocation. Hypertrophic degenerative changes seen about the acromioclavicular joint. IMPRESSION: 1. Deformity about the right humeral neck which appears chronic and consistent with an old fracture. 2. Degenerative changes
[2018-04-06] MEDS: Levothyroxine 0.075 Mg Tab PO SCH (09:19)
[2018-04-06] MEDS: Lactobacillus Rhamnosus GG 15 Billion CFU CAP.SPRINK PO SCH (09:22)
[2018-04-06] MEDS: Levofloxacin 250mg/50mL 250 MG/50 ML BAG IV SCH (10:03)
--- NOTE | 2018-04-06 13:49 | General Progress Note ---
Objective - Results Result Diagrams: 04/05/18 04:45 04/06/18 06:20 Recent Labs: Laboratory Last Values WBC 5.9 Th/cmm (4.8-10.8) 04/05/18 04:45 RBC 4.10 Mil/cmm (3.80-5.20) 04/05/18 04:45 Hgb 12.5 gm/dL (12-16) 04/05/18 04:45 Hct 37.5 % (41.0-60) L 04/05/18 04:45 MCV 91.5 fl (81-100) 04/05/18 04:45 MCH 30.6 pg (27.0-31.0) 04/05/18 04:45 MCHC Differential 33.4 pg (28.0-36.0) 04/05/18 04:45 RDW 13.9 % (11.5-20.0) 04/05/18 04:45 Plt Count 40 Th/cmm (150-400) L 04/05/18 04:45 MPV 11.2 fl 04/05/18 04:45 Add Manual Diff YES 04/04/18 12:40 Neutrophils % 74.5 % (40.0-80.0) 04/05/18 04:45 Lymphocytes % 16.1 % (20.0-50.0) L 04/05/18 04:45 Monocytes % 8.4 % (2.0-10.0) 04/05/18 04:45 Eosinophils % 0.6 % (0.0-5.0) 04/05/18 04:45 Basophils % 0.4 % (0.0-2.0) 04/05/18 04:45 Neutrophils (Manual) 75 % (40-80) 04/04/18 12:40 Lymphocytes 16 % (20-50) L 04/04/18 12:40 Monocytes 8 % (2-10) 04/04/18 12:40 Eosinophils 1 % (0-5) 04/04/18 12:40 Platelet Estimate DECREASED PLATELETS (NORMAL) 04/04/18 12:40 Platelet Morphology GIANT PLATELETS SEEN (NORMAL) 04/04/18 12:40 Sodium 143 mEq/L (136-145) 04/06/18 06:20 Potassium 3.3 mEq/L (3.5-5.1) L 04/06/18 06:20 Chloride 105 mEq/L (98-107) 04/06/18 06:20 Carbon Dioxide 27.0 mEq/L (21.0-31.0) 04/06/18 06:20 Anion Gap 14.3 (7.0-16.0) 04/06/18 06:20 BUN 13 mg/dL (7-25) 04/06/18 06:20 Creatinine 0.8 mg/dL (0.6-1.2) 04/06/18 06:20 Est GFR ( Amer) TNP 04/06/18 06:20 Est GFR (Non-Af Amer) TNP 04/06/18 06:20 BUN/Creatinine Ratio 16.3 04/06/18 06:20 Glucose 102 mg/dL (70-105) 04/06/18 06:20 Whole Bld Lactic Acid 0.94 mmol/L (0.60-1.99) 04/04/18 12:40 Calcium 8.8 mg/dL (8.6-10.3) 04/06/18 06:20 Total Bilirubin 1.3 mg/dL (0.3-1.0) H 04/05/18 04:45 AST 24 U/L (13-39) 04/05/18 04:45 ALT 12 U/L (7-52) 04/05/18 04:45 Alkaline Phosphatase 83 U/L (34-104) 04/05/18 04:45 Total Protein 7.2 gm/dL (6.0-8.3) 04/05/18 04:45 Albumin 3.8 gm/dL (3.7-5.3) 04/05/18 04:45 Globulin 3.4 gm/dL 04/05/18 04:45 Albumin/Globulin Ratio 1.1 (1.0-1.8) 04/05/18 04:45 Urine Source RANDOM 04/05/18 15:48 Urine Color YELLOW 04/05/18 15:48 Urine Clarity CLEAR (CLEAR) 04/05/18 15:48 Urine pH 7.5 (4.6 - 8.0) 04/05/18 15:48 Ur Specific [place] 1.010 (1.005-1.030) 04/05/18 15:48 Urine Protein NEGATIVE mg/dL (NEGATIVE) 04/05/18 15:48 Urine Glucose (UA) NEGATIVE mg/dL (NEGATIVE) 04/05/18 15:48 Urine Ketones NEGATIVE mg/dL (NEGATIVE) 04/05/18 15:48 Urine Blood NEGATIVE (NEGATIVE) 04/05/18 15:48 Urine Nitrate NEGATIVE (NEGATIVE) 04/05/18 15:48 Urine Bilirubin NEGATIVE (NEGATIVE) 04/05/18 15:48 Urine Urobilinogen 1.0 E.U./dL (0.2 - 1.0) 04/05/18 15:48 Ur Leukocyte Esterase NEGATIVE (NEGATIVE) 04/05/18 15:48 Urine RBC 0-2 /hpf (0-5) 04/05/18 15:48 Urine WBC 2-5 /hpf (0-5) 04/05/18 15:48 Ur Epithelial Cells MODERATE /lpf (FEW) 04/05/18 15:48 Urine Bacteria 1+ /hpf (NONE SEEN) H 04/05/18 15:48 Influenza A (Rapid) NEG FOR INF A 04/04/18 13:00 Influenza B (Rapid) NEG FOR INF B 04/04/18 13:00 - Physical Exam Vitals and I&O: Vital Signs Temp 98.3 F 04/06/18 11:56 Pulse 100 04/06/18 13:28 Resp 20 04/06/18 13:28 BP 126/84 04/06/18 11:56 Pulse Ox 94 04/06/18 13:28 Intake & Output 04/05/18 04/06/18 04/06/18 18:59 06:59 18:59 Intake Total 1100 2150 250 Balance 1100 2150 250 Weight (lbs) 80.739 kg 80.739 kg Intake: Intake, IV Amount 1100 350 50 Levofloxacin 250mg/50mL 50 250 mg In 50 ml @ 50 mls/ hr IV Q24HR [facility] Rx#: [id number] Piperacillin Sodium/ 100 100 Tazobact 3.375 gm In Sodium Chloride 0.9% 50 ml @ 100 mls/hr IV Q6HR [facility] Rx#:[id number] Sodium Chloride 0.9% 1, 1000 000 ml @ 50 mls/hr IV . Q20H [facility] Rx#:[id number] Vancomycin HCl 1 gm In 250 Sodium Chloride 0.9% 250 ml @ 166.667 mls/hr IV Q24H [facility] Rx#:[id number] Oral 1800 200 Other: # Voids 4 2 # Bowel Movements 0 1 Weight Source Bedscale Bedscale Active Medications: Current Medications Acetaminophen (Tylenol) 650 mg PO Q4HR PRN PRN Reason: Mild Pain / Temp above 100 Stop: 06/04/18 19:34 Al Hydrox/Mg Hydrox/Simethicone (Maalox) 30 ml PO Q4HR PRN PRN Reason: GI DISTRESS Stop: 06/04/18 19:34 Albuterol/Ipratropium (Duoneb Neb) 3 ml HHN Q6HRT [facility] Stop: 06/05/18 00:59 Last Admin: 04/06/18 13:28 Dose: 3 ml Aspirin (Aspirin) 325 mg PO DAILY [facility] Stop: 06/05/18 08:59 Last Admin: 04/06/18 09:21 Dose: Not Given Baclofen (Lioresal) 20 mg PO TID [facility] Stop: 06/04/18 20:59 Last Admin: 04/06/18 09:21 Dose: Not Given Furosemide (Lasix) 40 mg PO DAILY [facility] Stop: 06/05/18 08:59 Last Admin: 04/06/18 09:21 Dose: Not Given Gabapentin (Neurontin) 300 mg PO BID [facility] Stop: 06/05/18 08:59 Last Admin: 04/06/18 09:22 Dose: Not Given Guaifenesin/Dextromethorphan (Robitussin Dm) 10 ml PO Q6HR PRN PRN Reason: Cough Stop: 06/04/18 19:34 Sodium Chloride (Nacl 0.9%) 1,000 mls @ 50 mls/hr IV .Q20H [facility] Stop: 06/03/18 16:28 Last Admin: 04/05/18 15:31 Dose: 50 mls/hr Vancomycin HCl 1 gm/ Sodium (Chloride) 250 mls @ 166.667 mls/hr IV Q24H [facility] Stop: 06/03/18 16:59 Last Infusion: 04/05/18 21:53 Dose: Infused Levofloxacin (Levaquin Pb) 250 mg in 50 mls @ 50 mls/hr IV Q24HR [facility] Stop: 06/05/18 09:14 Last Infusion: 04/06/18 11:03 Dose: Infused Lactobacillus Rhamnosus (Culturelle 15b) 1 each PO DAILY [facility] Stop: 06/05/18 08:59 Last Admin: 04/06/18 09:22 Dose: Not Given Levothyroxine Sodium (Synthroid) 0.15 mg PO QDAC [facility] Stop: 06/05/18 07:59 Last Admin: 04/06/18 09:19 Dose: Not Given Magnesium Hydroxide (Milk Of Magnesia) 30 ml PO HS PRN PRN Reason: Constipation Stop: 06/04/18 19:34 Metoprolol Tartrate (Lopressor) 5 mg IV Q4HR PRN PRN Reason: a fib Stop: 06/04/18 15:59 Last Admin: 04/05/18 18:12 Dose: 5 mg Metoprolol Tartrate (Lopressor) 50 mg PO DAILY [facility] Stop: 06/05/18 08:59 Last Admin: 04/06/18 09:22 Dose: Not Given Metoprolol Tartrate (Lopressor) 50 mg PO DAILY [facility] Stop: 06/05/18 08:59 Last Admin: 04/06/18 09:23 Dose: Not Given Miscellaneous (Vancomycin Iv Per Pharmacy) 1 ea [facility] DAILY [facility] Stop: 06/04/18 08:59 Miscellaneous (Probiotic Screen) 1 ea MC PRN PRN PRN Reason: PROTOCOL Stop: 06/04/18 10:29 Miscellaneous (Vte Chemical Prophylaxis Screen/ Admission) 1 ea MC PRN PRN PRN Reason: PROTOCOL Stop: 06/04/18 10:59 Pantoprazole Sodium (Protonix) 40 mg PO QDAC [facility] Stop: 06/05/18 07:29 Last Admin: 04/06/18 06:59 Dose: 40 mg Quetiapine Fumarate (Seroquel) 225 mg PO HS [facility]; Protocol Stop: 06/04/18 20:59 Last Admin: 04/05/18 20:34 Dose: 225 mg
[2018-04-06 14:11] LABS: FOLIC ACID 15.9 ng/mL (>3.0)
--- NOTE | 2018-04-06 15:57 | General Progress Note ---
Subjective - Review of Systems Service Date: 04/06/18 Subjective: ANXIOUS Objective - Results Result Diagrams: 04/05/18 04:45 04/06/18 06:20 Recent Labs: Laboratory Last Values WBC 5.9 Th/cmm (4.8-10.8) 04/05/18 04:45 RBC 4.10 Mil/cmm (3.80-5.20) 04/05/18 04:45 Hgb 12.5 gm/dL (12-16) 04/05/18 04:45 Hct 37.5 % (41.0-60) L 04/05/18 04:45 MCV 91.5 fl (81-100) 04/05/18 04:45 MCH 30.6 pg (27.0-31.0) 04/05/18 04:45 MCHC Differential 33.4 pg (28.0-36.0) 04/05/18 04:45 RDW 13.9 % (11.5-20.0) 04/05/18 04:45 Plt Count 40 Th/cmm (150-400) L 04/05/18 04:45 MPV 11.2 fl 04/05/18 04:45 Add Manual Diff YES 04/04/18 12:40 Neutrophils % 74.5 % (40.0-80.0) 04/05/18 04:45 Lymphocytes % 16.1 % (20.0-50.0) L 04/05/18 04:45 Monocytes % 8.4 % (2.0-10.0) 04/05/18 04:45 Eosinophils % 0.6 % (0.0-5.0) 04/05/18 04:45 Basophils % 0.4 % (0.0-2.0) 04/05/18 04:45 Neutrophils (Manual) 75 % (40-80) 04/04/18 12:40 Lymphocytes 16 % (20-50) L 04/04/18 12:40 Monocytes 8 % (2-10) 04/04/18 12:40 Eosinophils 1 % (0-5) 04/04/18 12:40 Platelet Estimate DECREASED PLATELETS (NORMAL) 04/04/18 12:40 Platelet Morphology GIANT PLATELETS SEEN (NORMAL) 04/04/18 12:40 Sodium 143 mEq/L (136-145) 04/06/18 06:20 Potassium 3.3 mEq/L (3.5-5.1) L 04/06/18 06:20 Chloride 105 mEq/L (98-107) 04/06/18 06:20 Carbon Dioxide 27.0 mEq/L (21.0-31.0) 04/06/18 06:20 Anion Gap 14.3 (7.0-16.0) 04/06/18 06:20 BUN 13 mg/dL (7-25) 04/06/18 06:20 Creatinine 0.8 mg/dL (0.6-1.2) 04/06/18 06:20 Est GFR ( Amer) TNP 04/06/18 06:20 Est GFR (Non-Af Amer) TNP 04/06/18 06:20 BUN/Creatinine Ratio 16.3 04/06/18 06:20 Glucose 102 mg/dL (70-105) 04/06/18 06:20 Whole Bld Lactic Acid 0.94 mmol/L (0.60-1.99) 04/04/18 12:40 Calcium 8.8 mg/dL (8.6-10.3) 04/06/18 06:20 Total Bilirubin 1.3 mg/dL (0.3-1.0) H 04/05/18 04:45 AST 24 U/L (13-39) 04/05/18 04:45 ALT 12 U/L (7-52) 04/05/18 04:45 Alkaline Phosphatase 83 U/L (34-104) 04/05/18 04:45 Total Protein 7.2 gm/dL (6.0-8.3) 04/05/18 04:45 Albumin 3.8 gm/dL (3.7-5.3) 04/05/18 04:45 Globulin 3.4 gm/dL 04/05/18 04:45 Albumin/Globulin Ratio 1.1 (1.0-1.8) 04/05/18 04:45 Vitamin B12 659 pg/mL (232-1245) 04/05/18 04:45 Folic Acid 15.9 ng/mL (>3.0) 04/05/18 04:45 Urine Source RANDOM 04/05/18 15:48 Urine Color YELLOW 04/05/18 15:48 Urine Clarity CLEAR (CLEAR) 04/05/18 15:48 Urine pH 7.5 (4.6 - 8.0) 04/05/18 15:48 Ur Specific [place] 1.010 (1.005-1.030) 04/05/18 15:48 Urine Protein NEGATIVE mg/dL (NEGATIVE) 04/05/18 15:48 Urine Glucose (UA) NEGATIVE mg/dL (NEGATIVE) 04/05/18 15:48 Urine Ketones NEGATIVE mg/dL (NEGATIVE) 04/05/18 15:48 Urine Blood NEGATIVE (NEGATIVE) 04/05/18 15:48 Urine Nitrate NEGATIVE (NEGATIVE) 04/05/18 15:48 Urine Bilirubin NEGATIVE (NEGATIVE) 04/05/18 15:48 Urine Urobilinogen 1.0 E.U./dL (0.2 - 1.0) 04/05/18 15:48 Ur Leukocyte Esterase NEGATIVE (NEGATIVE) 04/05/18 15:48 Urine RBC 0-2 /hpf (0-5) 04/05/18 15:48 Urine WBC 2-5 /hpf (0-5) 04/05/18 15:48 Ur Epithelial Cells MODERATE /lpf (FEW) 04/05/18 15:48 Urine Bacteria 1+ /hpf (NONE SEEN) H 04/05/18 15:48 Influenza A (Rapid) NEG FOR INF A 04/04/18 13:00 Influenza B (Rapid) NEG FOR INF B 04/04/18 13:00 - Physical Exam Vitals and I&O: Vital Signs Temp 98.3 F 04/06/18 11:56 Pulse 100 04/06/18 13:28 Resp 18 04/06/18 14:28 BP 126/84 04/06/18 11:56 Pulse Ox 94 04/06/18 13:28 Intake & Output 04/05/18 04/06/18 04/06/18 18:59 06:59 18:59 Intake Total 1100 2150 250 Balance 1100 2150 250 Weight (lbs) 80.739 kg 80.739 kg Intake: Intake, IV Amount 1100 350 50 Levofloxacin 250mg/50mL 50 250 mg In 50 ml @ 50 mls/ hr IV Q24HR [facility] Rx#: [id number] Piperacillin Sodium/ 100 100 Tazobact 3.375 gm In Sodium Chloride 0.9% 50 ml @ 100 mls/hr IV Q6HR [facility] Rx#:[id number] Sodium Chloride 0.9% 1, 1000 000 ml @ 50 mls/hr IV . Q20H [facility] Rx#:[id number] Vancomycin HCl 1 gm In 250 Sodium Chloride 0.9% 250 ml @ 166.667 mls/hr IV Q24H [facility] Rx#:[id number] Oral 1800 200 Other: # Voids 4 2 # Bowel Movements 0 1 Weight Source Bedscale Bedscale Active Medications: Current Medications Acetaminophen (Tylenol) 650 mg PO Q4HR PRN PRN Reason: Mild Pain / Temp above 100 Stop: 06/04/18 19:34 Last Admin: 04/06/18 15:29 Dose: 650 mg Al Hydrox/Mg Hydrox/Simethicone (Maalox) 30 ml PO Q4HR PRN PRN Reason: GI DISTRESS Stop: 06/04/18 19:34 Albuterol/Ipratropium (Duoneb Neb) 3 ml HHN Q6HRT [facility] Stop: 06/05/18 00:59 Last Admin: 04/06/18 13:28 Dose: 3 ml Aspirin (Aspirin) 325 mg PO DAILY [facility] Stop: 06/05/18 08:59 Last Admin: 04/06/18 09:21 Dose: Not Given Baclofen (Lioresal) 20 mg PO TID [facility] Stop: 06/04/18 20:59 Last Admin: 04/06/18 15:34 Dose: 20 mg Furosemide (Lasix) 40 mg PO DAILY [facility] Stop: 06/05/18 08:59 Last Admin: 04/06/18 09:21 Dose: Not Given Gabapentin (Neurontin) 300 mg PO BID [facility] Stop: 06/05/18 08:59 Last Admin: 04/06/18 09:22 Dose: Not Given Guaifenesin/Dextromethorphan (Robitussin Dm) 10 ml PO Q6HR PRN PRN Reason: Cough Stop: 06/04/18 19:34 Sodium Chloride (Nacl 0.9%) 1,000 mls @ 50 mls/hr IV .Q20H [facility] Stop: 06/03/18 16:28 Last Admin: 04/05/18 15:31 Dose: 50 mls/hr Vancomycin HCl 1 gm/ Sodium (Chloride) 250 mls @ 166.667 mls/hr IV Q24H [facility] Stop: 06/03/18 16:59 Last Infusion: 04/05/18 21:53 Dose: Infused Levofloxacin (Levaquin Pb) 250 mg in 50 mls @ 50 mls/hr IV Q24HR [facility] Stop: 06/05/18 09:14 Last Infusion: 04/06/18 11:03 Dose: Infused Lactobacillus Rhamnosus (Culturelle 15b) 1 each PO DAILY [facility] Stop: 06/05/18 08:59 Last Admin: 04/06/18 09:22 Dose: Not Given Levothyroxine Sodium (Synthroid) 0.15 mg PO QDAC [facility] Stop: 06/05/18 07:59 Last Admin: 04/06/18 09:19 Dose: Not Given Magnesium Hydroxide (Milk Of Magnesia) 30 ml PO HS PRN PRN Reason: Constipation Stop: 06/04/18 19:34 Metoprolol Tartrate (Lopressor) 5 mg IV Q4HR PRN PRN Reason: a fib Stop: 06/04/18 15:59 Last Admin: 04/05/18 18:12 Dose: 5 mg Metoprolol Tartrate (Lopressor) 50 mg PO DAILY [facility] Stop: 06/05/18 08:59 Last Admin: 04/06/18 09:22 Dose: Not Given Metoprolol Tartrate (Lopressor) 50 mg PO DAILY [facility] Stop: 06/05/18 08:59 Last Admin: 04/06/18 09:23 Dose: Not Given Miscellaneous (Vancomycin Iv Per Pharmacy) 1 ea [facility] DAILY [facility] Stop: 06/04/18 08:59 Miscellaneous (Probiotic Screen) 1 ea MC PRN PRN PRN Reason: PROTOCOL Stop: 06/04/18 10:29 Miscellaneous (Vte Chemical Prophylaxis Screen/ Admission) 1 ea MC PRN PRN PRN Reason: PROTOCOL Stop: 06/04/18 10:59 Pantoprazole Sodium (Protonix) 40 mg PO QDAC [facility] Stop: 06/05/18 07:29 Last Admin: 04/06/18 06:59 Dose: 40 mg Quetiapine Fumarate (Seroquel) 225 mg PO HS [facility]; Protocol Stop: 06/04/18 20:59 Last Admin: 04/05/18 20:34 Dose: 225 mg General: Alert HEENT: Atraumatic Neck: Supple Cardiovascular: Regular rate Lungs: Clear to auscultation Abdomen: Soft Extremities: Other (no edema) Assessment/Plan - Assessment Assessment: * Mild thrombocytopenia * mild splenomegaly normal B12 and folate. Check coag panel, follow anemia leonard
[2018-04-06 17:20] LABS: INR 1.09 (0.5-1.4); PROTHROMBIN TIME (TEST) 11.3 SECONDS (9.5-11.5)
--- NOTE | 2018-04-06 18:55 | Consultation ---
DATE OF CONSULTATION: 04/05/[address] Best. Thank you very much Dr. Best for this consultation. HISTORY OF PRESENT ILLNESS: This is a 77-year-old female, a poor historian, is complaining of some cough and congestion for a few days and fever. The patient was diagnosed with bronchitis, possible pneumonia, admitted for treatment and management. PAST MEDICAL HISTORY: Significant for seizures, or thyroid disease, and psychosis. SOCIAL HISTORY: Denies smoking, drinking. Per ER note, the patient has history of smoking in the past. REVIEW OF SYSTEMS: GENERAL: Some weakness and fatigue. CARDIOVASCULAR: No chest pain or palpitation. RESPIRATORY: Shortness of breath and cough resolved. GASTROINTESTINAL: No nausea or vomiting. PHYSICAL EXAMINATION: GENERAL: Awake, alert, not in acute distress. VITAL SIGNS: Temperature 97.6, pulse is 73, respiration 18, blood pressure is 128/54, saturation is 97% on room air. HEENT: Atraumatic, normocephalic. Pupils are equal and reactive to light and accommodation. Ears, nose and throat normal. NECK: Supple. No JVD. CHEST: There are few rhonchi bilaterally. HEART: Regular rate and rhythm. ABDOMEN: Soft. EXTREMITIES: No edema. LABORATORY DATA: WBC is 5.9, hemoglobin 12.5, hematocrit 37.5, platelets is 40. Sodium 139, potassium 3.3, BUN is 13, creatinine 0.8. Chest x-ray, no obvious infiltrate. IMPRESSION: 1. This is a 77-year-old female with acute bronchitis, possible underlying airway disease, suggest COPD. 2. Thrombocytopenia, etiology to be determined. PLAN: 1. IV antibiotics. 2. Hematology evaluation. 3. Nebulized treatment. Supportive care. Followup chest x-ray. Thank you very much for this consultation. We will follow the patient with you. JOB# [id number]
[2018-04-06] MEDS: Metoprolol tartrate 1 mg/ml 5mL Amp IV PRN (20:08)
--- NOTE | 2018-04-06 21:54 | Consultation ---
DATE OF CONSULTATION: 04/05/2018 PRIMARY CARE PHYSICIAN: Dr. Best. HISTORY OF PRESENT ILLNESS: A 77-year-old female who was brought to the Emergency Room with complaint of fever and the patient was found to have sepsis. Workup shows pneumonia. Infectious consultation was called for further treatment. PAST MEDICAL HISTORY: Fibromyalgia, hypothyroidism, seizures. SOCIAL HISTORY: Ex-smoker. PAST SURGICAL HISTORY: Toe amputation. ALLERGIES: FORTAZ, SULFA AND CLINDAMYCIN. REVIEW OF SYSTEMS: A 14-point review of system negative except above. PHYSICAL EXAMINATION: GENERAL: Elderly female. VITAL SIGNS: Temperature is 98, pulse 90, respiration 18, blood pressure 150/80. HEENT: Mild pallor. No icterus or plaque. NECK: Supple. No thyromegaly. LUNGS: Breath sounds bilateral vesicular. ABDOMEN: Soft, bowel sounds, no cervical lymph nodes. LABORATORY DATA: Chest x-ray is reviewed, shows cardiomegaly, no infiltrates. Influenza A and B negative. Urine, 1+ bacteria. White count is 5000, hemoglobin is 12 grams, platelets 40. DIAGNOSES: Thrombocytopenia, Dr. Galvan on the case. Urinary tract infection. The patient was started on levofloxacin. Bronchitis. Influenza A and B negative. Repeat labs tomorrow. We will continue her vancomycin until further cultures are finalized and substitute Levaquin for Zosyn as the patient has allergy to FORTAZ and sputum culture. Blood culture has been negative. JOB# [id number]
[2018-04-07] MEDS: Albuterol/Ipratropium Neb 3 ML AERS HHN SCH ×4 (01:02→19:05)
--- NOTE | 2018-04-07 01:36 | Consultation ---
DATE OF CONSULTATION: 04/06/2018 IDENTIFYING INFORMATION: The patient is a 77-year-old female. HISTORY OF PRESENT ILLNESS: I was asked to see this patient by Dr. eBst. She have a history of psychosis. The patient is a fair historian. She said that she has been doing well now. She denies any intent to harm herself or anybody. She has not, however, sleeping well and eating well. She lives in a nursing facility. She was able to tell me the date roughly 03/2018. She knows she is here for pneumonia. The patient denies any current substance abuse. PAST PSYCHIATRIC HISTORY: The patient was hospitalized before because of alcohol. She denies any prior suicide attempts. She has been depressed all her life. She denies any auditory or visual hallucinations now, but she reports she used to hear hallucination, but they are never command. The patient denies prior suicide attempt. MEDICAL HISTORY: The patient is coming with pneumonia. She has a seizure disorder, thyroid disorder, history of atrial fibrillation, hypothyroid, fibromyalgia, and history of psychosis. MEDICATIONS: She is currently on Seroquel with a history of drinking. The patient have amputation of her first and third toes of the left foot. The patient was started on IV antibiotic. The patient is on Seroquel 225 mg at bedtime as well as aspirin, baclofen, Lasix, gabapentin, guaifenesin, levofloxacin, levothyroxine, metoprolol, pantoprazole, and vancomycin IV. FAMILY AND SOCIAL HISTORY: The patient is since 2004. She was for 7 years. She has 5 living children. She has a Ph.D. degree. She has done everything she said. She reported no family history of psychotic disorder. She is currently living in a nursing facility. MENTAL STATUS EXAMINATION: The patient is appropriately dressed, appropriately groomed. She was alert. She is able to tell me this is 03/2018. She knew she was in the hospital because of pneumonia. She reports she has not been sleeping or eating well as she has pneumonia. She denies any current auditory or visual hallucinations. She has a history of hallucinations in the past. Her long-term is good for age, date of . Recent memory is good for events after coming here. Her insight about her illness is fair. Judgment is fair. She denies any intent to harm herself or anybody. No auditory or visual hallucinations. No paranoia. PLAN: Recommend continue the Seroquel. The patient needs follow up with the psychiatrist upon discharge. Thank you very much for allowing me to participate in the care of this most interesting lady. JOB# [id number]
[2018-04-07] MEDS: Pantoprazole 40 mg EC Tab PO SCH (06:47)
[2018-04-07] MEDS: Levothyroxine 0.075 Mg Tab PO SCH (06:47)
[2018-04-07 08:05] LABS: IRON LC 92 ug/dL (27-139); TIBC (LC) 351 ug/dL (250-450); UIBC 259 ug/dL (118-369)
[2018-04-07] MEDS: Lactobacillus Rhamnosus GG 15 Billion CFU CAP.SPRINK PO SCH (08:33)
[2018-04-07] MEDS: Metoprolol tartrate 1 mg/ml 5mL Amp IV PRN (08:33)
[2018-04-07] MEDS: Levofloxacin 250mg/50mL 250 MG/50 ML BAG IV SCH (08:40)
--- NOTE | 2018-04-07 09:07 | Diagnostic Imaging Report ---
Portable chest x-ray HISTORY: Shortness of breath Compared with prior exam of 04/04/2018, the heart appears enlarged. No focal pulmonary processes. No hilar or mediastinal abnormalities. IMPRESSION: 1. No acute focal pulmonary processes 2. Cardiomegaly
--- NOTE | 2018-04-07 09:13 | Diagnostic Imaging Report ---
Abdominal ultrasound HISTORY: Splenomegaly Exam is extremely limited due to patient's size, body habitus, and bowel gas. Limited evaluation of the liver which appears to be enlarged. No obvious focal lesions. The gallbladder is not seen consistent with the patient's surgical history. No definite biliary dilatation. Pancreas cannot be well seen due to bowel gas. The right kidney appears to be slightly decreased in size (8.9 x 3.8 x 5.3 cm). No focal lesions. No hydronephrosis. No obvious focal lesions or hydronephrosis involving the left kidney. The spleen is generous in size (12.1 x 4.5 x 4.7 cm). No other obvious retroperitoneal or intra-abdominal abnormalities. IMPRESSION: 1. Limited exam due to patient size, body habitus, and bowel gas. 2. Hepatosplenomegaly 3. Nonvisualization the gallbladder consistent with patient's surgical history 4. Suggestion of a slight decrease in size of the right kidney
[2018-04-07] MEDS: Sodium Chloride 0.9% 1,000 ML IV SCH (10:16)
--- NOTE | 2018-04-07 19:56 | General Progress Note ---
Objective - Results Result Diagrams: 04/05/18 04:45 04/06/18 06:20 Recent Labs: Laboratory Last Values WBC 5.9 Th/cmm (4.8-10.8) 04/05/18 04:45 RBC 4.10 Mil/cmm (3.80-5.20) 04/05/18 04:45 Hgb 12.5 gm/dL (12-16) 04/05/18 04:45 Hct 37.5 % (41.0-60) L 04/05/18 04:45 MCV 91.5 fl (81-100) 04/05/18 04:45 MCH 30.6 pg (27.0-31.0) 04/05/18 04:45 MCHC Differential 33.4 pg (28.0-36.0) 04/05/18 04:45 RDW 13.9 % (11.5-20.0) 04/05/18 04:45 Plt Count 40 Th/cmm (150-400) L 04/05/18 04:45 MPV 11.2 fl 04/05/18 04:45 Add Manual Diff YES 04/04/18 12:40 Neutrophils % 74.5 % (40.0-80.0) 04/05/18 04:45 Lymphocytes % 16.1 % (20.0-50.0) L 04/05/18 04:45 Monocytes % 8.4 % (2.0-10.0) 04/05/18 04:45 Eosinophils % 0.6 % (0.0-5.0) 04/05/18 04:45 Basophils % 0.4 % (0.0-2.0) 04/05/18 04:45 Neutrophils (Manual) 75 % (40-80) 04/04/18 12:40 Lymphocytes 16 % (20-50) L 04/04/18 12:40 Monocytes 8 % (2-10) 04/04/18 12:40 Eosinophils 1 % (0-5) 04/04/18 12:40 Platelet Estimate DECREASED PLATELETS (NORMAL) 04/04/18 12:40 Platelet Morphology GIANT PLATELETS SEEN (NORMAL) 04/04/18 12:40 PT 11.3 SECONDS (9.5-11.5) 04/06/18 16:59 INR 1.09 (0.5-1.4) 04/06/18 16:59 PTT (Actin FS) 26.3 SECONDS (26.0-38.0) 04/06/18 16:59 Sodium 143 mEq/L (136-145) 04/06/18 06:20 Potassium 3.3 mEq/L (3.5-5.1) L 04/06/18 06:20 Chloride 105 mEq/L (98-107) 04/06/18 06:20 Carbon Dioxide 27.0 mEq/L (21.0-31.0) 04/06/18 06:20 Anion Gap 14.3 (7.0-16.0) 04/06/18 06:20 BUN 13 mg/dL (7-25) 04/06/18 06:20 Creatinine 0.8 mg/dL (0.6-1.2) 04/06/18 06:20 Est GFR ( Amer) TNP 04/06/18 06:20 Est GFR (Non-Af Amer) TNP 04/06/18 06:20 BUN/Creatinine Ratio 16.3 04/06/18 06:20 Glucose 102 mg/dL (70-105) 04/06/18 06:20 Whole Bld Lactic Acid 0.94 mmol/L (0.60-1.99) 04/04/18 12:40 Calcium 8.8 mg/dL (8.6-10.3) 04/06/18 06:20 Iron 92 ug/dL (27-139) 04/06/18 16:59 TIBC 351 ug/dL (250-450) 04/06/18 16:59 Iron Saturation 26 % (15-55) 04/06/18 16:59 Unsaturated IBC 259 ug/dL (118-369) 04/06/18 16:59 Total Bilirubin 1.3 mg/dL (0.3-1.0) H 04/05/18 04:45 AST 24 U/L (13-39) 04/05/18 04:45 ALT 12 U/L (7-52) 04/05/18 04:45 Alkaline Phosphatase 83 U/L (34-104) 04/05/18 04:45 Total Protein 7.2 gm/dL (6.0-8.3) 04/05/18 04:45 Albumin 3.8 gm/dL (3.7-5.3) 04/05/18 04:45 Globulin 3.4 gm/dL 04/05/18 04:45 Albumin/Globulin Ratio 1.1 (1.0-1.8) 04/05/18 04:45 Vitamin B12 659 pg/mL (232-1245) 04/05/18 04:45 Folic Acid 15.9 ng/mL (>3.0) 04/05/18 04:45 Urine Source RANDOM 04/05/18 15:48 Urine Color YELLOW 04/05/18 15:48 Urine Clarity CLEAR (CLEAR) 04/05/18 15:48 Urine pH 7.5 (4.6 - 8.0) 04/05/18 15:48 Ur Specific [place] 1.010 (1.005-1.030) 04/05/18 15:48 Urine Protein NEGATIVE mg/dL (NEGATIVE) 04/05/18 15:48 Urine Glucose (UA) NEGATIVE mg/dL (NEGATIVE) 04/05/18 15:48 Urine Ketones NEGATIVE mg/dL (NEGATIVE) 04/05/18 15:48 Urine Blood NEGATIVE (NEGATIVE) 04/05/18 15:48 Urine Nitrate NEGATIVE (NEGATIVE) 04/05/18 15:48 Urine Bilirubin NEGATIVE (NEGATIVE) 04/05/18 15:48 Urine Urobilinogen 1.0 E.U./dL (0.2 - 1.0) 04/05/18 15:48 Ur Leukocyte Esterase NEGATIVE (NEGATIVE) 04/05/18 15:48 Urine RBC 0-2 /hpf (0-5) 04/05/18 15:48 Urine WBC 2-5 /hpf (0-5) 04/05/18 15:48 Ur Epithelial Cells MODERATE /lpf (FEW) 04/05/18 15:48 Urine Bacteria 1+ /hpf (NONE SEEN) H 04/05/18 15:48 Vancomycin Trough 6.1 ug/mL (5-10) 04/06/18 16:59 Influenza A (Rapid) NEG FOR INF A 04/04/18 13:00 Influenza B (Rapid) NEG FOR INF B 04/04/18 13:00 - Physical Exam Vitals and I&O: Vital Signs Temp 97.6 F 04/07/18 15:41 Pulse 106 04/07/18 19:05 Resp 18 04/07/18 19:05 BP 147/78 04/07/18 15:41 Pulse Ox 98 04/07/18 19:05 Intake & Output 04/07/18 04/07/18 04/08/18 06:59 18:59 06:59 Intake Total 300 1320 Balance 300 1320 Weight (lbs) 79.832 kg 79.832 kg Intake: Intake, IV Amount 300 Levofloxacin 250mg/50mL 50 250 mg In 50 ml @ 50 mls/ hr IV Q24HR [facility] Rx#: [id number] Vancomycin HCl 1 gm In 250 Sodium Chloride 0.9% 250 ml @ 165 mls/hr IV Q12HR [facility] Rx#:[id number] Oral 300 1020 Other: # Voids 2 3 # Bowel Movements 0 Weight Source Bedscale Estimated Active Medications: Current Medications Acetaminophen (Tylenol) 650 mg PO Q4HR PRN PRN Reason: Mild Pain / Temp above 100 Stop: 06/04/18 19:34 Last Admin: 04/06/18 15:29 Dose: 650 mg Al Hydrox/Mg Hydrox/Simethicone (Maalox) 30 ml PO Q4HR PRN PRN Reason: GI DISTRESS Stop: 06/04/18 19:34 Albuterol/Ipratropium (Duoneb Neb) 3 ml HHN Q6HRT [facility] Stop: 06/05/18 00:59 Last Admin: 04/07/18 19:05 Dose: 3 ml Aspirin (Aspirin) 325 mg PO DAILY [facility] Stop: 06/05/18 08:59 Last Admin: 04/07/18 08:33 Dose: 325 mg Baclofen (Lioresal) 20 mg PO TID [facility] Stop: 06/04/18 20:59 Last Admin: 04/07/18 14:19 Dose: 20 mg Furosemide (Lasix) 40 mg PO DAILY [facility] Stop: 06/05/18 08:59 Last Admin: 04/07/18 08:33 Dose: 40 mg Gabapentin (Neurontin) 300 mg PO BID [facility] Stop: 06/05/18 08:59 Last Admin: 04/07/18 16:37 Dose: 300 mg Guaifenesin/Dextromethorphan (Robitussin Dm) 10 ml PO Q6HR PRN PRN Reason: Cough Stop: 06/04/18 19:34 Sodium Chloride (Nacl 0.9%) 1,000 mls @ 50 mls/hr IV .Q20H [facility] Stop: 06/03/18 16:28 Last Admin: 04/07/18 10:16 Dose: 50 mls/hr Levofloxacin (Levaquin Pb) 250 mg in 50 mls @ 50 mls/hr IV Q24HR [facility] Stop: 06/05/18 09:14 Last Infusion: 04/07/18 09:40 Dose: Infused Vancomycin HCl 1 gm/ Sodium (Chloride) 250 mls @ 165 mls/hr IV Q12HR [facility] Stop: 06/06/18 08:59 Last Infusion: 04/07/18 11:45 Dose: Infused Lactobacillus Rhamnosus (Culturelle 15b) 1 each PO DAILY [facility] Stop: 06/05/18 08:59 Last Admin: 04/07/18 08:33 Dose: 1 each Levothyroxine Sodium (Synthroid) 0.15 mg PO QDAC [facility] Stop: 06/05/18 07:59 Last Admin: 04/07/18 06:47 Dose: 0.15 mg Magnesium Hydroxide (Milk Of Magnesia) 30 ml PO HS PRN PRN Reason: Constipation Stop: 06/04/18 19:34 Metoprolol Tartrate (Lopressor) 5 mg IV Q4HR PRN PRN Reason: a fib Stop: 06/04/18 15:59 Last Admin: 04/07/18 08:33 Dose: 5 mg Metoprolol Tartrate (Lopressor) 50 mg PO DAILY [facility] Stop: 06/05/18 08:59 Last Admin: 04/07/18 11:53 Dose: 50 mg Miscellaneous (Vancomycin Iv Per Pharmacy) 1 ea [facility] DAILY [facility] Stop: 06/04/18 08:59 Miscellaneous (Probiotic Screen) 1 ea [facility] PRN PRN PRN Reason: PROTOCOL Stop: 06/04/18 10:29 Miscellaneous (Vte Chemical Prophylaxis Screen/ Admission) 1 ea [facility] PRN PRN PRN Reason: PROTOCOL Stop: 06/04/18 10:59 Pantoprazole Sodium (Protonix) 40 mg PO QDAC [facility] Stop: 06/05/18 07:29 Last Admin: 04/07/18 06:47 Dose: 40 mg Quetiapine Fumarate (Seroquel) 225 mg PO HS [facility]; Protocol Stop: 06/04/18 20:59 Last Admin: 04/06/18 20:39 Dose: 225 mg General: Alert HEENT: Atraumatic Neck: Supple Cardiovascular: Regular rate Lungs: Clear to auscultation Abdomen: Soft Extremities: Other (no edema)
--- NOTE | 2018-04-07 21:45 | Progress Notes ---
DATE: 04/07/2018 SUMMARY: Case was discussed with staff of the patient and reviewed records. The patient continues to be recovering from pneumonia; however, today, she could not remember talking to me yesterday. The patient lives in a nursing facility. She has been somewhat confused. She has been unable to sleep or eat well because of pneumonia. She denies any current intent to harm herself or anybody. Denies any visual hallucinations. She has been compliant with the medication with no side effects, no sedation, no nausea, and no extrapyramidal symptoms, and she is on Seroquel 25 mg at bedtime. Thank you very much for allowing me to participate in the care of this most interesting lady. JOB# [id number]
--- NOTE | 2018-04-07 22:50 | Infectious Disease Prog Note ---
Infectious Disease Subjective - Review of Systems Service Date: 04/07/18 Subjective: doing better, no fever. Infectious Disease Objective - Results Result Diagrams: 04/05/18 04:45 04/06/18 06:20 Recent Labs: Laboratory Last Values WBC 5.9 Th/cmm (4.8-10.8) 04/05/18 04:45 RBC 4.10 Mil/cmm (3.80-5.20) 04/05/18 04:45 Hgb 12.5 gm/dL (12-16) 04/05/18 04:45 Hct 37.5 % (41.0-60) L 04/05/18 04:45 MCV 91.5 fl (81-100) 04/05/18 04:45 MCH 30.6 pg (27.0-31.0) 04/05/18 04:45 MCHC Differential 33.4 pg (28.0-36.0) 04/05/18 04:45 RDW 13.9 % (11.5-20.0) 04/05/18 04:45 Plt Count 40 Th/cmm (150-400) L 04/05/18 04:45 MPV 11.2 fl 04/05/18 04:45 Add Manual Diff YES 04/04/18 12:40 Neutrophils % 74.5 % (40.0-80.0) 04/05/18 04:45 Lymphocytes % 16.1 % (20.0-50.0) L 04/05/18 04:45 Monocytes % 8.4 % (2.0-10.0) 04/05/18 04:45 Eosinophils % 0.6 % (0.0-5.0) 04/05/18 04:45 Basophils % 0.4 % (0.0-2.0) 04/05/18 04:45 Neutrophils (Manual) 75 % (40-80) 04/04/18 12:40 Lymphocytes 16 % (20-50) L 04/04/18 12:40 Monocytes 8 % (2-10) 04/04/18 12:40 Eosinophils 1 % (0-5) 04/04/18 12:40 Platelet Estimate DECREASED PLATELETS (NORMAL) 04/04/18 12:40 Platelet Morphology GIANT PLATELETS SEEN (NORMAL) 04/04/18 12:40 PT 11.3 SECONDS (9.5-11.5) 04/06/18 16:59 INR 1.09 (0.5-1.4) 04/06/18 16:59 PTT (Actin FS) 26.3 SECONDS (26.0-38.0) 04/06/18 16:59 Sodium 143 mEq/L (136-145) 04/06/18 06:20 Potassium 3.3 mEq/L (3.5-5.1) L 04/06/18 06:20 Chloride 105 mEq/L (98-107) 04/06/18 06:20 Carbon Dioxide 27.0 mEq/L (21.0-31.0) 04/06/18 06:20 Anion Gap 14.3 (7.0-16.0) 04/06/18 06:20 BUN 13 mg/dL (7-25) 04/06/18 06:20 Creatinine 0.8 mg/dL (0.6-1.2) 04/06/18 06:20 Est GFR ( Amer) TNP 04/06/18 06:20 Est GFR (Non-Af Amer) TNP 04/06/18 06:20 BUN/Creatinine Ratio 16.3 04/06/18 06:20 Glucose 102 mg/dL (70-105) 04/06/18 06:20 Whole Bld Lactic Acid 0.94 mmol/L (0.60-1.99) 04/04/18 12:40 Calcium 8.8 mg/dL (8.6-10.3) 04/06/18 06:20 Iron 92 ug/dL (27-139) 04/06/18 16:59 TIBC 351 ug/dL (250-450) 04/06/18 16:59 Iron Saturation 26 % (15-55) 04/06/18 16:59 Unsaturated IBC 259 ug/dL (118-369) 04/06/18 16:59 Total Bilirubin 1.3 mg/dL (0.3-1.0) H 04/05/18 04:45 AST 24 U/L (13-39) 04/05/18 04:45 ALT 12 U/L (7-52) 04/05/18 04:45 Alkaline Phosphatase 83 U/L (34-104) 04/05/18 04:45 Total Protein 7.2 gm/dL (6.0-8.3) 04/05/18 04:45 Albumin 3.8 gm/dL (3.7-5.3) 04/05/18 04:45 Globulin 3.4 gm/dL 04/05/18 04:45 Albumin/Globulin Ratio 1.1 (1.0-1.8) 04/05/18 04:45 Vitamin B12 659 pg/mL (232-1245) 04/05/18 04:45 Folic Acid 15.9 ng/mL (>3.0) 04/05/18 04:45 Urine Source RANDOM 04/05/18 15:48 Urine Color YELLOW 04/05/18 15:48 Urine Clarity CLEAR (CLEAR) 04/05/18 15:48 Urine pH 7.5 (4.6 - 8.0) 04/05/18 15:48 Ur Specific [place] 1.010 (1.005-1.030) 04/05/18 15:48 Urine Protein NEGATIVE mg/dL (NEGATIVE) 04/05/18 15:48 Urine Glucose (UA) NEGATIVE mg/dL (NEGATIVE) 04/05/18 15:48 Urine Ketones NEGATIVE mg/dL (NEGATIVE) 04/05/18 15:48 Urine Blood NEGATIVE (NEGATIVE) 04/05/18 15:48 Urine Nitrate NEGATIVE (NEGATIVE) 04/05/18 15:48 Urine Bilirubin NEGATIVE (NEGATIVE) 04/05/18 15:48 Urine Urobilinogen 1.0 E.U./dL (0.2 - 1.0) 04/05/18 15:48 Ur Leukocyte Esterase NEGATIVE (NEGATIVE) 04/05/18 15:48 Urine RBC 0-2 /hpf (0-5) 04/05/18 15:48 Urine WBC 2-5 /hpf (0-5) 04/05/18 15:48 Ur Epithelial Cells MODERATE /lpf (FEW) 04/05/18 15:48 Urine Bacteria 1+ /hpf (NONE SEEN) H 04/05/18 15:48 Vancomycin Trough 6.1 ug/mL (5-10) 04/06/18 16:59 Influenza A (Rapid) NEG FOR INF A 04/04/18 13:00 Influenza B (Rapid) NEG FOR INF B 04/04/18 13:00 - Physical Exam Vitals and I&O: Vital Signs Temp 97.3 F 04/07/18 20:16 Pulse 52 04/07/18 20:16 Resp 18 04/07/18 20:16 BP 147/83 04/07/18 20:16 Pulse Ox 96 04/07/18 20:16 Intake & Output 04/07/18 04/07/18 04/08/18 06:59 18:59 06:59 Intake Total 300 1320 Balance 300 1320 Weight (lbs) 79.832 kg 79.832 kg Intake: Intake, IV Amount 300 Levofloxacin 250mg/50mL 50 250 mg In 50 ml @ 50 mls/ hr IV Q24HR [facility] Rx#: [id number] Vancomycin HCl 1 gm In 250 Sodium Chloride 0.9% 250 ml @ 165 mls/hr IV Q12HR [facility] Rx#:[id number] Oral 300 1020 Other: # Voids 2 3 # Bowel Movements 0 Weight Source Bedscale Estimated Active Medications: Current Medications Acetaminophen (Tylenol) 650 mg PO Q4HR PRN PRN Reason: Mild Pain / Temp above 100 Stop: 06/04/18 19:34 Last Admin: 04/06/18 15:29 Dose: 650 mg Al Hydrox/Mg Hydrox/Simethicone (Maalox) 30 ml PO Q4HR PRN PRN Reason: GI DISTRESS Stop: 06/04/18 19:34 Albuterol/Ipratropium (Duoneb Neb) 3 ml HHN Q6HRT [facility] Stop: 06/05/18 00:59 Last Admin: 04/07/18 19:05 Dose: 3 ml Aspirin (Aspirin) 325 mg PO DAILY [facility] Stop: 06/05/18 08:59 Last Admin: 04/07/18 08:33 Dose: 325 mg Baclofen (Lioresal) 20 mg PO TID [facility] Stop: 06/04/18 20:59 Last Admin: 04/07/18 20:34 Dose: 20 mg Furosemide (Lasix) 40 mg PO DAILY [facility] Stop: 06/05/18 08:59 Last Admin: 04/07/18 08:33 Dose: 40 mg Gabapentin (Neurontin) 300 mg PO BID [facility] Stop: 06/05/18 08:59 Last Admin: 04/07/18 16:37 Dose: 300 mg Guaifenesin/Dextromethorphan (Robitussin Dm) 10 ml PO Q6HR PRN PRN Reason: Cough Stop: 06/04/18 19:34 Sodium Chloride (Nacl 0.9%) 1,000 mls @ 50 mls/hr IV .Q20H [facility] Stop: 06/03/18 16:28 Last Admin: 04/07/18 10:16 Dose: 50 mls/hr Levofloxacin (Levaquin Pb) 250 mg in 50 mls @ 50 mls/hr IV Q24HR [facility] Stop: 06/05/18 09:14 Last Infusion: 04/07/18 09:40 Dose: Infused Vancomycin HCl 1 gm/ Sodium (Chloride) 250 mls @ 165 mls/hr IV Q12HR [facility] Stop: 06/06/18 08:59 Last Admin: 04/07/18 22:17 Dose: 165 mls/hr Lactobacillus Rhamnosus (Culturelle 15b) 1 each PO DAILY [facility] Stop: 06/05/18 08:59 Last Admin: 04/07/18 08:33 Dose: 1 each Levothyroxine Sodium (Synthroid) 0.15 mg PO QDAC [facility] Stop: 06/05/18 07:59 Last Admin: 04/07/18 06:47 Dose: 0.15 mg Magnesium Hydroxide (Milk Of Magnesia) 30 ml PO HS PRN PRN Reason: Constipation Stop: 06/04/18 19:34 Metoprolol Tartrate (Lopressor) 5 mg IV Q4HR PRN PRN Reason: a fib Stop: 06/04/18 15:59 Last Admin: 04/07/18 08:33 Dose: 5 mg Metoprolol Tartrate (Lopressor) 50 mg PO DAILY [facility] Stop: 06/05/18 08:59 Last Admin: 04/07/18 11:53 Dose: 50 mg Miscellaneous (Vancomycin Iv Per Pharmacy) 1 ea [facility] DAILY [facility] Stop: 06/04/18 08:59 Miscellaneous (Probiotic Screen) 1 ea [facility] PRN PRN PRN Reason: PROTOCOL Stop: 06/04/18 10:29 Miscellaneous (Vte Chemical Prophylaxis Screen/ Admission) 1 ea [facility] PRN PRN PRN Reason: PROTOCOL Stop: 06/04/18 10:59 Pantoprazole Sodium (Protonix) 40 mg PO QDAC [facility] Stop: 06/05/18 07:29 Last Admin: 04/07/18 06:47 Dose: 40 mg Quetiapine Fumarate (Seroquel) 225 mg PO HS [facility]; Protocol Stop: 06/04/18 20:59 Last Admin: 04/07/18 20:34 Dose: 225 mg General: no acute distress, well developed, well nourished HEENT: atraumatic, normocephalic Neck: supple Cardiovascular: S1S2, regular Lungs: clear to auscultation bilaterally Abdomen: soft, no tender, no distended, no mass Extremities: no cyanosis, no clubbing, no edema Neurological: awake, alert, oriented Skin: intact Infectious Disease Assmt/Plan - Assessment Assessment: 1. UTI. 2. Bronchitis. 3. - Plan Plan: promise sandoval.
[2018-04-08] MEDS: Albuterol/Ipratropium Neb 3 ML AERS HHN SCH ×4 (00:41→19:03)
[2018-04-08] MEDS: Pantoprazole 40 mg EC Tab PO SCH (06:54)
[2018-04-08] MEDS: Levothyroxine 0.075 Mg Tab PO SCH (06:54)
[2018-04-08] MEDS: Lactobacillus Rhamnosus GG 15 Billion CFU CAP.SPRINK PO SCH (08:40)
[2018-04-08] MEDS: Levofloxacin 250mg/50mL 250 MG/50 ML BAG IV SCH (08:42)
--- NOTE | 2018-04-08 11:21 | General Progress Note ---
Subjective - Review of Systems Service Date: 04/08/18 Subjective: ANXIOUS Objective - Results Result Diagrams: 04/05/18 04:45 04/06/18 06:20 Recent Labs: Laboratory Last Values WBC 5.9 Th/cmm (4.8-10.8) 04/05/18 04:45 RBC 4.10 Mil/cmm (3.80-5.20) 04/05/18 04:45 Hgb 12.5 gm/dL (12-16) 04/05/18 04:45 Hct 37.5 % (41.0-60) L 04/05/18 04:45 MCV 91.5 fl (81-100) 04/05/18 04:45 MCH 30.6 pg (27.0-31.0) 04/05/18 04:45 MCHC Differential 33.4 pg (28.0-36.0) 04/05/18 04:45 RDW 13.9 % (11.5-20.0) 04/05/18 04:45 Plt Count 40 Th/cmm (150-400) L 04/05/18 04:45 MPV 11.2 fl 04/05/18 04:45 Add Manual Diff YES 04/04/18 12:40 Neutrophils % 74.5 % (40.0-80.0) 04/05/18 04:45 Lymphocytes % 16.1 % (20.0-50.0) L 04/05/18 04:45 Monocytes % 8.4 % (2.0-10.0) 04/05/18 04:45 Eosinophils % 0.6 % (0.0-5.0) 04/05/18 04:45 Basophils % 0.4 % (0.0-2.0) 04/05/18 04:45 Neutrophils (Manual) 75 % (40-80) 04/04/18 12:40 Lymphocytes 16 % (20-50) L 04/04/18 12:40 Monocytes 8 % (2-10) 04/04/18 12:40 Eosinophils 1 % (0-5) 04/04/18 12:40 Platelet Estimate DECREASED PLATELETS (NORMAL) 04/04/18 12:40 Platelet Morphology GIANT PLATELETS SEEN (NORMAL) 04/04/18 12:40 PT 11.3 SECONDS (9.5-11.5) 04/06/18 16:59 INR 1.09 (0.5-1.4) 04/06/18 16:59 PTT (Actin FS) 26.3 SECONDS (26.0-38.0) 04/06/18 16:59 Sodium 143 mEq/L (136-145) 04/06/18 06:20 Potassium 3.3 mEq/L (3.5-5.1) L 04/06/18 06:20 Chloride 105 mEq/L (98-107) 04/06/18 06:20 Carbon Dioxide 27.0 mEq/L (21.0-31.0) 04/06/18 06:20 Anion Gap 14.3 (7.0-16.0) 04/06/18 06:20 BUN 13 mg/dL (7-25) 04/06/18 06:20 Creatinine 0.8 mg/dL (0.6-1.2) 04/06/18 06:20 Est GFR ( Amer) TNP 04/06/18 06:20 Est GFR (Non-Af Amer) TNP 04/06/18 06:20 BUN/Creatinine Ratio 16.3 04/06/18 06:20 Glucose 102 mg/dL (70-105) 04/06/18 06:20 Whole Bld Lactic Acid 0.94 mmol/L (0.60-1.99) 04/04/18 12:40 Calcium 8.8 mg/dL (8.6-10.3) 04/06/18 06:20 Iron 92 ug/dL (27-139) 04/06/18 16:59 TIBC 351 ug/dL (250-450) 04/06/18 16:59 Iron Saturation 26 % (15-55) 04/06/18 16:59 Unsaturated IBC 259 ug/dL (118-369) 04/06/18 16:59 Total Bilirubin 1.3 mg/dL (0.3-1.0) H 04/05/18 04:45 AST 24 U/L (13-39) 04/05/18 04:45 ALT 12 U/L (7-52) 04/05/18 04:45 Alkaline Phosphatase 83 U/L (34-104) 04/05/18 04:45 Total Protein 7.2 gm/dL (6.0-8.3) 04/05/18 04:45 Albumin 3.8 gm/dL (3.7-5.3) 04/05/18 04:45 Globulin 3.4 gm/dL 04/05/18 04:45 Albumin/Globulin Ratio 1.1 (1.0-1.8) 04/05/18 04:45 Vitamin B12 659 pg/mL (232-1245) 04/05/18 04:45 Folic Acid 15.9 ng/mL (>3.0) 04/05/18 04:45 Urine Source RANDOM 04/05/18 15:48 Urine Color YELLOW 04/05/18 15:48 Urine Clarity CLEAR (CLEAR) 04/05/18 15:48 Urine pH 7.5 (4.6 - 8.0) 04/05/18 15:48 Ur Specific [place] 1.010 (1.005-1.030) 04/05/18 15:48 Urine Protein NEGATIVE mg/dL (NEGATIVE) 04/05/18 15:48 Urine Glucose (UA) NEGATIVE mg/dL (NEGATIVE) 04/05/18 15:48 Urine Ketones NEGATIVE mg/dL (NEGATIVE) 04/05/18 15:48 Urine Blood NEGATIVE (NEGATIVE) 04/05/18 15:48 Urine Nitrate NEGATIVE (NEGATIVE) 04/05/18 15:48 Urine Bilirubin NEGATIVE (NEGATIVE) 04/05/18 15:48 Urine Urobilinogen 1.0 E.U./dL (0.2 - 1.0) 04/05/18 15:48 Ur Leukocyte Esterase NEGATIVE (NEGATIVE) 04/05/18 15:48 Urine RBC 0-2 /hpf (0-5) 04/05/18 15:48 Urine WBC 2-5 /hpf (0-5) 04/05/18 15:48 Ur Epithelial Cells MODERATE /lpf (FEW) 04/05/18 15:48 Urine Bacteria 1+ /hpf (NONE SEEN) H 04/05/18 15:48 Vancomycin Trough 17.9 ug/mL (5-10) H 04/08/18 07:50 Influenza A (Rapid) NEG FOR INF A 04/04/18 13:00 Influenza B (Rapid) NEG FOR INF B 04/04/18 13:00 - Physical Exam Vitals and I&O: Vital Signs Temp 97 F 04/08/18 08:00 Pulse 83 04/08/18 08:40 Resp 20 04/08/18 08:00 BP 174/90 04/08/18 08:40 Pulse Ox 96 04/08/18 08:00 Intake & Output 04/07/18 04/08/18 04/08/18 18:59 06:59 18:59 Intake Total 1320 750 Balance 1320 750 Weight (lbs) 79.832 kg 79.832 kg Intake: Intake, IV Amount 300 250 Levofloxacin 250mg/50mL 50 250 mg In 50 ml @ 50 mls/ hr IV Q24HR [facility] Rx#: [id number] Vancomycin HCl 1 gm In 250 Sodium Chloride 0.9% 250 ml @ 165 mls/hr IV Q12HR [facility] Rx#:[id number] Oral 1020 500 Other: # Voids 3 5 # Bowel Movements 1 Stool Characteristics Formed Weight Source Estimated Bedscale Active Medications: Current Medications Acetaminophen (Tylenol) 650 mg PO Q4HR PRN PRN Reason: Mild Pain / Temp above 100 Stop: 06/04/18 19:34 Last Admin: 04/06/18 15:29 Dose: 650 mg Al Hydrox/Mg Hydrox/Simethicone (Maalox) 30 ml PO Q4HR PRN PRN Reason: GI DISTRESS Stop: 06/04/18 19:34 Albuterol/Ipratropium (Duoneb Neb) 3 ml HHN Q6HRT [facility] Stop: 06/05/18 00:59 Last Admin: 04/08/18 06:57 Dose: 3 ml Aspirin (Aspirin) 325 mg PO DAILY [facility] Stop: 06/05/18 08:59 Last Admin: 04/08/18 08:40 Dose: 325 mg Baclofen (Lioresal) 20 mg PO TID [facility] Stop: 06/04/18 20:59 Last Admin: 04/08/18 08:40 Dose: 20 mg Furosemide (Lasix) 40 mg PO DAILY [facility] Stop: 06/05/18 08:59 Last Admin: 04/08/18 08:40 Dose: 40 mg Gabapentin (Neurontin) 300 mg PO BID [facility] Stop: 06/05/18 08:59 Last Admin: 04/08/18 08:40 Dose: 300 mg Guaifenesin/Dextromethorphan (Robitussin Dm) 10 ml PO Q6HR PRN PRN Reason: Cough Stop: 06/04/18 19:34 Sodium Chloride (Nacl 0.9%) 1,000 mls @ 50 mls/hr IV .Q20H [facility] Stop: 06/03/18 16:28 Last Admin: 04/07/18 10:16 Dose: 50 mls/hr Levofloxacin (Levaquin Pb) 250 mg in 50 mls @ 50 mls/hr IV Q24HR [facility] Stop: 06/05/18 09:14 Last Admin: 04/08/18 08:42 Dose: 50 mls/hr Lactobacillus Rhamnosus (Culturelle 15b) 1 each PO DAILY [facility] Stop: 06/05/18 08:59 Last Admin: 04/08/18 08:40 Dose: 1 each Levothyroxine Sodium (Synthroid) 0.15 mg PO QDAC [facility] Stop: 06/05/18 07:59 Last Admin: 04/08/18 06:54 Dose: 0.15 mg Magnesium Hydroxide (Milk Of Magnesia) 30 ml PO HS PRN PRN Reason: Constipation Stop: 06/04/18 19:34 Metoprolol Tartrate (Lopressor) 5 mg IV Q4HR PRN PRN Reason: a fib Stop: 06/04/18 15:59 Last Admin: 04/07/18 08:33 Dose: 5 mg Metoprolol Tartrate (Lopressor) 50 mg PO DAILY [facility] Stop: 06/05/18 08:59 Last Admin: 04/08/18 08:40 Dose: 50 mg Miscellaneous (Probiotic Screen) 1 ea MC PRN PRN PRN Reason: PROTOCOL Stop: 06/04/18 10:29 Miscellaneous (Vte Chemical Prophylaxis Screen/ Admission) 1 ea PRN PRN PRN Reason: PROTOCOL Stop: 06/04/18 10:59 Pantoprazole Sodium (Protonix) 40 mg PO QDAC [facility] Stop: 06/05/18 07:29 Last Admin: 04/08/18 06:54 Dose: 40 mg Quetiapine Fumarate (Seroquel) 225 mg PO HS [facility]; Protocol Stop: 06/04/18 20:59 Last Admin: 04/07/18 20:34 Dose: 225 mg General: Alert HEENT: Atraumatic Neck: Supple Cardiovascular: Regular rate Lungs: Clear to auscultation Abdomen: Soft Extremities: Other (no edema) Assessment/Plan - Assessment Assessment: * Mild thrombocytopenia * mild splenomegaly normal B12 and folate. coag panel normal, follow ferritin
[2018-04-08] MEDS: Sodium Chloride 0.9% 1,000 ML IV SCH (12:40)
--- NOTE | 2018-04-08 15:18 | Progress Notes ---
DATE: 04/08/2018 SUBJECTIVE: Case discussed with staff and reviewed records. The patient is recovering from pneumonia. The patient continues to do well on her current medications with Seroquel 225 mg at bedtime. She denies any current auditory, visual, or paranoia. She tends to get confused at times, but she could be also somewhat delirious because of her medication and the patient needs follow up with discharge Psychiatry upon discharge. Thank you very much for allowing me to participate in the care of this most interesting lady. JOB# [id number]
[2018-04-08] MEDS ORDERED: Potassium Chloride 20 mEq ER Tab PO ONE (16:45)
--- NOTE | 2018-04-08 16:46 | Internal Medicine Prog Note ---
Internal Medicine Subjective - Subjective Patient seen and examined:: chart reviewed Patient is:: awake, other (doing well ) Per staff patient has:: no adverse event Internal Medicine Objective - Results Result Diagrams: 04/05/18 04:45 04/06/18 06:20 Recent Labs: Laboratory Last Values WBC 5.9 Th/cmm (4.8-10.8) 04/05/18 04:45 RBC 4.10 Mil/cmm (3.80-5.20) 04/05/18 04:45 Hgb 12.5 gm/dL (12-16) 04/05/18 04:45 Hct 37.5 % (41.0-60) L 04/05/18 04:45 MCV 91.5 fl (81-100) 04/05/18 04:45 MCH 30.6 pg (27.0-31.0) 04/05/18 04:45 MCHC Differential 33.4 pg (28.0-36.0) 04/05/18 04:45 RDW 13.9 % (11.5-20.0) 04/05/18 04:45 Plt Count 40 Th/cmm (150-400) L 04/05/18 04:45 MPV 11.2 fl 04/05/18 04:45 Add Manual Diff YES 04/04/18 12:40 Neutrophils % 74.5 % (40.0-80.0) 04/05/18 04:45 Lymphocytes % 16.1 % (20.0-50.0) L 04/05/18 04:45 Monocytes % 8.4 % (2.0-10.0) 04/05/18 04:45 Eosinophils % 0.6 % (0.0-5.0) 04/05/18 04:45 Basophils % 0.4 % (0.0-2.0) 04/05/18 04:45 Neutrophils (Manual) 75 % (40-80) 04/04/18 12:40 Lymphocytes 16 % (20-50) L 04/04/18 12:40 Monocytes 8 % (2-10) 04/04/18 12:40 Eosinophils 1 % (0-5) 04/04/18 12:40 Platelet Estimate DECREASED PLATELETS (NORMAL) 04/04/18 12:40 Platelet Morphology GIANT PLATELETS SEEN (NORMAL) 04/04/18 12:40 PT 11.3 SECONDS (9.5-11.5) 04/06/18 16:59 INR 1.09 (0.5-1.4) 04/06/18 16:59 PTT (Actin FS) 26.3 SECONDS (26.0-38.0) 04/06/18 16:59 Sodium 143 mEq/L (136-145) 04/06/18 06:20 Potassium 3.3 mEq/L (3.5-5.1) L 04/06/18 06:20 Chloride 105 mEq/L (98-107) 04/06/18 06:20 Carbon Dioxide 27.0 mEq/L (21.0-31.0) 04/06/18 06:20 Anion Gap 14.3 (7.0-16.0) 04/06/18 06:20 BUN 13 mg/dL (7-25) 04/06/18 06:20 Creatinine 0.8 mg/dL (0.6-1.2) 04/06/18 06:20 Est GFR ( Amer) TNP 04/06/18 06:20 Est GFR (Non-Af Amer) TNP 04/06/18 06:20 BUN/Creatinine Ratio 16.3 04/06/18 06:20 Glucose 102 mg/dL (70-105) 04/06/18 06:20 Whole Bld Lactic Acid 0.94 mmol/L (0.60-1.99) 04/04/18 12:40 Calcium 8.8 mg/dL (8.6-10.3) 04/06/18 06:20 Iron 92 ug/dL (27-139) 04/06/18 16:59 TIBC 351 ug/dL (250-450) 04/06/18 16:59 Iron Saturation 26 % (15-55) 04/06/18 16:59 Unsaturated IBC 259 ug/dL (118-369) 04/06/18 16:59 Total Bilirubin 1.3 mg/dL (0.3-1.0) H 04/05/18 04:45 AST 24 U/L (13-39) 04/05/18 04:45 ALT 12 U/L (7-52) 04/05/18 04:45 Alkaline Phosphatase 83 U/L (34-104) 04/05/18 04:45 Total Protein 7.2 gm/dL (6.0-8.3) 04/05/18 04:45 Albumin 3.8 gm/dL (3.7-5.3) 04/05/18 04:45 Globulin 3.4 gm/dL 04/05/18 04:45 Albumin/Globulin Ratio 1.1 (1.0-1.8) 04/05/18 04:45 Vitamin B12 659 pg/mL (232-1245) 04/05/18 04:45 Folic Acid 15.9 ng/mL (>3.0) 04/05/18 04:45 Urine Source RANDOM 04/05/18 15:48 Urine Color YELLOW 04/05/18 15:48 Urine Clarity CLEAR (CLEAR) 04/05/18 15:48 Urine pH 7.5 (4.6 - 8.0) 04/05/18 15:48 Ur Specific [place] 1.010 (1.005-1.030) 04/05/18 15:48 Urine Protein NEGATIVE mg/dL (NEGATIVE) 04/05/18 15:48 Urine Glucose (UA) NEGATIVE mg/dL (NEGATIVE) 04/05/18 15:48 Urine Ketones NEGATIVE mg/dL (NEGATIVE) 04/05/18 15:48 Urine Blood NEGATIVE (NEGATIVE) 04/05/18 15:48 Urine Nitrate NEGATIVE (NEGATIVE) 04/05/18 15:48 Urine Bilirubin NEGATIVE (NEGATIVE) 04/05/18 15:48 Urine Urobilinogen 1.0 E.U./dL (0.2 - 1.0) 04/05/18 15:48 Ur Leukocyte Esterase NEGATIVE (NEGATIVE) 04/05/18 15:48 Urine RBC 0-2 /hpf (0-5) 04/05/18 15:48 Urine WBC 2-5 /hpf (0-5) 04/05/18 15:48 Ur Epithelial Cells MODERATE /lpf (FEW) 04/05/18 15:48 Urine Bacteria 1+ /hpf (NONE SEEN) H 04/05/18 15:48 Vancomycin Trough 17.9 ug/mL (5-10) H 04/08/18 07:50 Influenza A (Rapid) NEG FOR INF A 04/04/18 13:00 Influenza B (Rapid) NEG FOR INF B 04/04/18 13:00 - Physical Exam Vitals and I&O: Vital Signs Temp 96.8 F 04/08/18 16:22 Pulse 73 04/08/18 16:22 Resp 19 04/08/18 16:22 BP 150/76 04/08/18 16:22 Pulse Ox 97 04/08/18 16:22 Intake & Output 04/07/18 04/08/18 04/08/18 18:59 06:59 18:59 Intake Total 1320 1750 Balance 1320 1750 Weight (lbs) 79.832 kg 79.832 kg Intake: Intake, IV Amount 300 1250 Levofloxacin 250mg/50mL 50 250 mg In 50 ml @ 50 mls/ hr IV Q24HR [facility] Rx#: [id number] Sodium Chloride 0.9% 1, 1000 000 ml @ 50 mls/hr IV . Q20H [facility] Rx#:[id number] Vancomycin HCl 1 gm In 250 Sodium Chloride 0.9% 250 ml @ 165 mls/hr IV Q12HR [facility] Rx#:[id number] Oral 1020 500 Other: # Voids 3 5 # Bowel Movements 1 Stool Characteristics Formed Weight Source Estimated Bedscale Active Medications: Current Medications Acetaminophen (Tylenol) 650 mg PO Q4HR PRN PRN Reason: Mild Pain / Temp above 100 Stop: 06/04/18 19:34 Last Admin: 04/06/18 15:29 Dose: 650 mg Al Hydrox/Mg Hydrox/Simethicone (Maalox) 30 ml PO Q4HR PRN PRN Reason: GI DISTRESS Stop: 06/04/18 19:34 Albuterol/Ipratropium (Duoneb Neb) 3 ml HHN Q6HRT [facility] Stop: 06/05/18 00:59 Last Admin: 04/08/18 12:23 Dose: 3 ml Aspirin (Aspirin) 325 mg PO DAILY [facility] Stop: 06/05/18 08:59 Last Admin: 04/08/18 08:40 Dose: 325 mg Baclofen (Lioresal) 20 mg PO TID [facility] Stop: 06/04/18 20:59 Last Admin: 04/08/18 16:28 Dose: 20 mg Furosemide (Lasix) 40 mg PO DAILY [facility] Stop: 06/05/18 08:59 Last Admin: 04/08/18 08:40 Dose: 40 mg Gabapentin (Neurontin) 300 mg PO BID [facility] Stop: 06/05/18 08:59 Last Admin: 04/08/18 16:28 Dose: 300 mg Guaifenesin/Dextromethorphan (Robitussin Dm) 10 ml PO Q6HR PRN PRN Reason: Cough Stop: 06/04/18 19:34 Sodium Chloride (Nacl 0.9%) 1,000 mls @ 50 mls/hr IV .Q20H [facility] Stop: 06/03/18 16:28 Last Admin: 04/08/18 12:40 Dose: 50 mls/hr Levofloxacin (Levaquin Pb) 250 mg in 50 mls @ 50 mls/hr IV Q24HR [facility] Stop: 06/05/18 09:14 Last Admin: 04/08/18 08:42 Dose: 50 mls/hr Lactobacillus Rhamnosus (Culturelle 15b) 1 each PO DAILY [facility] Stop: 06/05/18 08:59 Last Admin: 04/08/18 08:40 Dose: 1 each Levothyroxine Sodium (Synthroid) 0.15 mg PO QDAC [facility] Stop: 06/05/18 07:59 Last Admin: 04/08/18 06:54 Dose: 0.15 mg Magnesium Hydroxide (Milk Of Magnesia) 30 ml PO HS PRN PRN Reason: Constipation Stop: 06/04/18 19:34 Metoprolol Tartrate (Lopressor) 5 mg IV Q4HR PRN PRN Reason: a fib Stop: 06/04/18 15:59 Last Admin: 04/07/18 08:33 Dose: 5 mg Metoprolol Tartrate (Lopressor) 50 mg PO DAILY [facility] Stop: 06/05/18 08:59 Last Admin: 04/08/18 08:40 Dose: 50 mg Miscellaneous (Probiotic Screen) 1 ea [facility] PRN PRN PRN Reason: PROTOCOL Stop: 06/04/18 10:29 Miscellaneous (Vte Chemical Prophylaxis Screen/ Admission) 1 ea [facility] PRN PRN PRN Reason: PROTOCOL Stop: 06/04/18 10:59 Pantoprazole Sodium (Protonix) 40 mg PO QDAC [facility] Stop: 06/05/18 07:29 Last Admin: 04/08/18 06:54 Dose: 40 mg Quetiapine Fumarate (Seroquel) 225 mg PO HS [facility]; Protocol Stop: 06/04/18 20:59 Last Admin: 04/07/18 20:34 Dose: 225 mg General: alert HEENT: NC/AT Neck: Supple, No JVD Lungs: CTAB Cardiovascular: RRR, Normal S1, Normal S2 Abdomen: soft, non-tender Extremities: clear, no edema Neurological: no change Internal Medicine Assmt/Plan - Assessment Assessment: uti bronchitis - Plan Plan: as per order sheet Nutritional Asmnt/Malnutr-PDOC - Dietary Evaluation Malnutrition Findings (Please click <Entered> for more info): Nutritional Asmnt/Malnutrition Start: 04/08/18 14: 30 Text: Status: Active Freq: Protocol: Document 04/08/18 14:30 [email or web address] (Rec: 04/08/18 14:40 [email or web address]) Nutritional Asmnt/Malnutrition Patient General Information Nutritional Screening Moderate Risk Diagnosis excerbation COPD, bronchitis pancytopenia Pertinent Medical Hx/Surgical Hx seizure, thyroid disorder, atrial fibrillation, hypothyroidism, fibromyalgia, psychosis Subjective Information Pt was seen resting in bed at time of visit. PO intake is 75 -100%, eats well per RN. Pt stated she is tired of chicken , pork, and turkey, does not like gravy and ice cream. Prefers beef, fish, and sherbert. 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 Query Text:Check all the applicable criteria. A minimum of two criteria are recommended for diagnosis of either severe or non-severe malnutrition. Malnutrition Related to Morbid Obesity Malnutrition related to morbid obesity No Intervention/Recommendation Comments 1. Continue with low sodium 2gm, mech soft chopped diet as ordered. 2. Monitor PO intake, wt, labs and skin integrity 3. F/U as low risk in 7 days Expected Outcomes/Goals Expected Outcomes/Goals 1. PO intake to meet at least 75% of nutritional needs. 2. Wt stability, skin to remain intact, labs to approach WNL.
--- NOTE | 2018-04-10 16:39 | Cardiology ---
04/06/2018 PATIENT OF: Dr. Best. M-MODE ECHOCARDIOGRAM: Mitral valve, anterior leaflet of mitral valve shows normal excursion, EF velocity. Posterior leaflet of mitral valve shows normal excursion. Left ventricular posterior wall shows increased thickness, normal excursion. Interventricular septum shows increased thickness, normal excursion, hypertrophy of the left ventricle, ejection fraction 75%. Left atrium normal. Aortic root shows normal dimension, normal excursion of aortic leaflets. CONCLUSION: Hypertrophy of the left ventricle, ejection fraction 75%. 2D ECHO: Long axis view showed normal sized left ventricle with hypertrophy of the left ventricle. Left atrium normal. Aortic root shows normal dimension, normal excursion of aortic leaflets. Short axis view of mitral valve normal. Short axis view of aortic valve normal. Apical four chamber view showed normal sized left ventricle with hypertrophy of the left ventricle. Left atrial enlargement, right atrial enlargement. Right ventricular cavity normal. CONCLUSION: Hypertrophy of the left ventricle. Left atrial enlargement, right atrial enlargement, ejection fraction 75%. Doppler study shows mild mitral regurgitation, trace tricuspid regurgitation, right ventricular systolic pressure 28 mmHg. JOB# [id number]
== END 2018-04-08 20:45 | DRG 871 ==
LOC: ER 11:33 → TELE 16:32
PROVIDERS: ADMIT Internal Medicine; ATTEND Internal Medicine
DX: A41.51 Sepsis due to Escherichia coli [E. coli] (principal); J18.9 Pneumonia, unspecified organism; N39.0 Urinary tract infection, site not specified; J44.1 Chronic obstructive pulmonary disease with (acute) exacerbation; D61.818 Other pancytopenia; J44.0 Chronic obstructive pulmonary disease with (acute) lower respiratory infection; D69.6 Thrombocytopenia, unspecified; J20.9 Acute bronchitis, unspecified; Z66 Do not resuscitate; R56.9 Unspecified convulsions; I48.91 Unspecified atrial fibrillation; E03.9 Hypothyroidism, unspecified; H40.9 Unspecified glaucoma; F41.9 Anxiety disorder, unspecified; R16.1 Splenomegaly, not elsewhere classified; M81.0 Age-related osteoporosis without current pathological fracture; M79.7 Fibromyalgia; Z88.2 Allergy status to sulfonamides; Z88.8 Allergy status to other drugs, medicaments and biological substances; Z87.891 Personal history of nicotine dependence; Z89.412 Acquired absence of left great toe; Z89.422 Acquired absence of other left toe(s); Z88.1 Allergy status to other antibiotic agents
CPT/HCPCS: 36415-UA; 71045-TC; 73030-TC-RT; 76700-TC; 80048-TC; 80053-TC; 80202-TC; 81001-TC; 82607-90; 82728-90; 82746-90; 83540-90; 83550-90; 83605; 85007-TC; 85025-TC; 85610-TC; 85730-TC; 87804-TC; 90799; 93005; 94640; 94760; J1956; J2543; J3370; J7030; X3904; Z7610